=== PATIENT | female | born 1950 | race Caucasian/White ===

== ENCOUNTER 2016-12-30 07:59 | Emergency (ER) | payer OTHER ==
[~2016-12-30] VITALS: Ht 160 cm; Wt 105.8 kg
[~2016-12-30 07:59] MED LIST: ATEN-175 PO; CYCL10TA6 PO; DICL1GEL28 TOP; DICY20TA35 PO; DIPH25CA65 PO; GABA-113 PO; GABA300C19 PO; HYDRTAB8 PO; LOPE-5 PO; NAPR1TAB9 PO; ONDA8TAB62 SL; PRLSR20 PO
[2016-12-30 08:04] VITALS: TEMP 36.7; Ht 160 cm; Wt 105.8 kg
--- NOTE | 2016-12-30 09:27 | DIAGNOSTIC IMAGING REPORT ---
LEFT HUMERUS 2 VIEWS CLINICAL HISTORY: Fall with left arm pain. FINDINGS: AP and lateral views of the left humerus are obtained. No prior studies are available for comparison at the time of dictation. The skeletal structures are osteopenic. There is no radiographic evidence of humeral fracture. The shoulder and elbow joints are grossly maintained. An enthesophyte is present at the triceps insertion on the ulna. The overlying soft tissues are within normal limits. IMPRESSION: Osteopenia with no radiographic evidence of left humeral fracture. Electronically signed by: Eamon Bryan M.D. 12/30/2016 9:26 AM Dictated Date/Time: 12/30/2016 9:24 AM
--- NOTE | 2016-12-30 09:28 | DIAGNOSTIC IMAGING REPORT ---
LEFT SHOULDER MIN 2 VIEWS ROUTINE CLINICAL HISTORY: pain s/p fall trauma COMPARISON: None. DISCUSSION: Moderate degenerative change glenohumeral joint. Subtle Hill-Sachs type deformity lateral aspect humeral head. Osteophyte projecting from the inferior acromion most likely creating a component of the patient. No significant soft tissue calcifications. There is no evidence for soft tissue swelling. IMPRESSION: Degenerative change. No acute bony abnormality. Electronically signed by: Tip Lo M.D. 12/30/2016 9:27 AM Dictated Date/Time: 12/30/2016 9:24 AM
--- NOTE | 2016-12-30 09:53 | EMERGENCY ROOM VISIT NOTE ---
ED Visit Note First contact with patient: 08:15 Chief Complaint: Fell this AM, LEFT Arm Pain History of Present Illness: Patient is a 66-year-old female who presents to the emergency Department by private vehicle for evaluation of her LEFT arm pain. She reports that she fell this morning on ice. She landed on her elbow. She denies striking her head or any loss of consciousness. The patient rates her current discomfort as a 10/10. She did take one, 7.5 mg Vicodin which was previously prescribed for chronic back pain with minimal relief of symptoms. The patient denies any current headaches, dizziness, neck pain, elbow pain, or wrist pain. She does not utilize any blood thinners. She denies any numbness or tingling into the distal care. She reports no previous history of fracture or injury to the affected area. She denies any prefall headaches, dizziness, lightheadedness, chest pain, or shortness of breath. Medications: Reviewed and discussed with the patient. Allergies: Tetanus toxoids. PMH: No pertinent past medical history. SHx: Patient is a 66-year-old female who lives with family. ROS: All pertinent positive and negative review of systems are appropriately documented in the History of Present Illness. Physical Exam: VITAL SIGNS - Vital signs and nursing notes were reviewed. GENERAL - 66-year-old LEFT appearing her stated age and in noticeable discomfort throughout the exam. NECK - FROM of the cervical spine. No spinous process or paraspinal muscle tenderness to palpation. No nuchal rigidity. LUNGS - Chest wall symmetric without accessory muscle use, intercostals retractions, or central cyanosis. Normal vesicular breath sounds CTA B/L. No wheezes, rales, or rhonchi appreciated. CARDIAC - RRR with S1/S2. No murmur, rubs, or gallops appreciated. MUSCULOSKELETAL - tenderness to palpation to the midshaft of the humerus on the LEFT arm. No step-off deformities appreciated. No tenderness to palpation appreciated in the LEFT shoulder or elbow. +4/5 strength appreciated LEFT versus right secondary to patient discomfort. NEUROLOGIC - SENSORY: Spinothalamic tract was found to be intact with ability to discriminate sharp versus dull sensation at the level of the LEFT side of the neck down to the fingertips. No sensory deficits of the dorsal column were appreciated utilizing light touch for evaluation. VASCULAR - Capillary refill was brisk. +3/5 radial pulse palpated. IMAGING: LEFT HUMERUS 2 VIEWS CLINICAL HISTORY: Fall with left arm pain. FINDINGS: AP and lateral views of the left humerus are obtained. No prior studies are available for comparison at the time of dictation. The skeletal structures are osteopenic. There is no radiographic evidence of humeral fracture. The shoulder and elbow joints are grossly maintained. An enthesophyte is present at the triceps insertion on the ulna. The overlying soft tissues are within normal limits. IMPRESSION: Osteopenia with no radiographic evidence of left humeral fracture. LEFT SHOULDER MIN 2 VIEWS ROUTINE CLINICAL HISTORY: pain s/p fall trauma COMPARISON: None. DISCUSSION: Moderate degenerative change glenohumeral joint. Subtle Hill-Sachs type deformity lateral aspect humeral head. Osteophyte projecting from the inferior acromion most likely creating a component of the patient. No significant soft tissue calcifications. There is no evidence for soft tissue swelling. IMPRESSION: Degenerative change. No acute bony abnormality. ED Course: Patient was seen and evaluated by myself. Patient was provided an arm sling for comfort. X-ray was obtained of the affected shoulder and humerus. Imaging results as above. Imaging results reviewed with the patient who acknowledges understanding. The patient was provided an arm sling to be used for comfort for the next few days. She has [id number] medications as well as Vicodin to be used for pain. She'll follow-up with her primary care provider or orthopedic surgeon from today's visit. She will return for any changing/ worsening symptoms. Patient discharged home in good condition. In the evaluation and treatment of this patient, the following differential diagnoses were considered: Shoulder Contusion, Shoulder Fracture, Shoulder Dislocation, Thoracic Outlet Syndrome, Adhesive Capsulitis, Rotator Cuff Tear, Proximal Clavicle Head Fracture, Apical Pneumonia, Pneumothorax, Hemothorax, or TB. Impression: LEFT Humerus Contusion, Mechanical Fall Discharge Instructions: You have been treated in the Emergency Department for your LEFT Humerus Contusion. For pain control, you can use the following kyfo-hed-[id number] medicines (if >12 yo): - Regular strength (325mg/tab) Tylenol (acetaminophen) 2 tabs every 4-6 hours as needed. Do not exceed 12 tablets in a 24 hour period. Avoid taking more than 4 grams (4000 mg) of Tylenol per day. This includes any other sources of acetaminophen you may take on a regular basis. - Regular strength (200 mg/tab) Advil (ibuprofen) 1-2 tabs every 4-6 hours as needed. Do not exceed a dose of 3200 mg per day. If this is a recent injury (<24 hrs), ice can be applied to the area of pain for the first 3 days to help decrease pain and inflammation. Wear the arm sling for comfort for the next several days as needed. Return to the Emergency Department if your current symptoms worsen despite treatment course outlined above, or if you develop any of the following symptoms : intractable pain despite aforementioned treatment course or new onset of numbness or tingling of the arm. Problem List Medical Problems: (1) Acute back pain Status: Resolved (2) Arthritis Status: Chronic (3) Contusion of knee, left Status: Resolved (4) Depressive Disorder Nec Status: Chronic (5) Esophageal Reflux Status: Chronic (6) Fall Status: Resolved (7) HYPERTENSION NOS Status: Chronic (8) Influenza A Status: Resolved (9) Mid back pain Status: Resolved (10) Mid back pain Status: Resolved (11) Peripheral neuropathy Status: Chronic Surgical Problems: (1) Appendectomy Status: Resolved (2) Arthroscopy of knee joint Status: Resolved (3) section Status: Resolved (4) Cholecystectomy Status: Resolved (5) Hysterectomy Status: Resolved Current/Historical Medications Scheduled Atenolol (Tenormin), 100 MG PO BID Dicyclomine Hcl (Bentyl), 20 MG PO BID Diphenhydramine Hcl (Benadryl Allergy), 25 MG PO HS Gabapentin (Neurontin), 600 MG PO AMPM Gabapentin (Neurontin), 600 MG PO DAILY Loperamide Hcl (Imodium A-D), 2 MG PO HS Omeprazole (Prilosec), 20 MG PO Q2D Scheduled PRN Cyclobenzaprine Hcl (Flexeril), 10 MG PO TID PRN for MUS SPASMS Diclofenac Sod (Voltaren 1% Top Gel), 1 APPLN TOP BID PRN Hydrocodone/Acetaminophen 7.5MG/500MG (Lortab 7.5MG/500MG), 1 TAB PO TID PRN Naproxen (Aleve), 220 MG PO Q12 PRN for Pain Ondansetron Odt (Zofran Odt), 8 MG SL Q6H PRN for Nausea Allergies Coded Allergies: Tetanus Toxoids (Verified Allergy, Severe, ARM SWELLING, 12/30/16) Vital Signs Date Time Temp Pulse Resp B/P Pulse Ox O2 Delivery O2 Flow Rate FiO2 12/30/16 09:56 72 16 138/84 97 12/30/16 08:04 36.7 60 18 185/84 95 Room Air Departure Information Impression Primary Impression: Contusion of arm, left Additional Impression: Fall Dispostion Home / Self-Care Condition GOOD Referrals Olegario Voss M.D. (PCP) Patient Instructions [facility] Additional Instructions You have been treated in the Emergency Department for your LEFT Humerus Contusion. For pain control, you can use the following zsbv-gia-frbcpxf medicines (if >12 yo): - Regular strength (325mg/tab) Tylenol (acetaminophen) 2 tabs every 4-6 hours as needed. Do not exceed 12 tablets in a 24 hour period. Avoid taking more than 4 grams (4000 mg) of Tylenol per day. This includes any other sources of acetaminophen you may take on a regular basis. - Regular strength (200 mg/tab) Advil (ibuprofen) 1-2 tabs every 4-6 hours as needed. Do not exceed a dose of 3200 mg per day. If this is a recent injury (<24 hrs), ice can be applied to the area of pain for the first 3 days to help decrease pain and inflammation. Wear the arm sling for comfort for the next several days as needed. Return to the Emergency Department if your current symptoms worsen despite treatment course outlined above, or if you develop any of the following symptoms : intractable pain despite aforementioned treatment course or new onset of numbness or tingling of the arm. Problem Qualifiers Primary Impression: Contusion of arm, left Encounter type: initial encounter Qualified Codes: S40.022A - Contusion of left upper arm, initial encounter Additional Impression: Fall Encounter type: initial encounter Qualified Codes: W19.XXXA - Unspecified fall, initial encounter
[2016-12-30 09:56] VITALS: BP 138/84; PULSE 72; O2SAT 97
[2017-02-15] MEDS ORDERED: HYDR-3983 PO (12:09)
== END 2016-12-30 10:06 | disposition home or self-care (01) ==
LOC: C.EDB 08:00
DX: S40.022A Contusion of left upper arm, initial encounter (principal); W00.9XXA Unspecified fall due to ice and snow, initial encounter; M19.90 Unspecified osteoarthritis, unspecified site; F32.9 Major depressive disorder, single episode, unspecified; K21.9 Gastro-esophageal reflux disease without esophagitis; I10 Essential (primary) hypertension; G62.9 Polyneuropathy, unspecified; Z90.49 Acquired absence of other specified parts of digestive tract; Z90.710 Acquired absence of both cervix and uterus; Z79.899 Other long term (current) drug therapy

== ENCOUNTER → 2017-02-10 | Outpatient (CLI) | payer OTHER ==
[~2017-02-10] MED LIST changes: +HYDR-3983 PO; +KETO10TA PO; +OXYC-57 PO
[2017-02-10 13:45] LABS: BASO % 0.4 %; BASO ABS # 0.03 K/uL (0-0.2); COMPLETE YES; EOS % 1.8 %; HEMATOCRIT 37.5 % (37-47); IG% 0.3 %; LYMPH % 41.1 %; LYMPH ABS # 2.93 K/uL (1.2-3.4); MEAN CELL VOLUME 87.4 fL (80-100); MEAN CORPUSCULAR HEMOGLOBIN 30.3 pg (25-34); MEAN CORPUSCULAR HGB CONC 34.7 g/dl (32-36); MEAN PLATELET VOLUME 9.8 fL (7.4-10.4); MONO % 7.6 %; NEUT % 48.8 %; PLATELET COUNT 208 K/uL (130-400); RED BLOOD COUNT 4.29 M/uL (4.2-5.4); WHITE BLOOD COUNT 7.13 K/uL (4.8-10.8)
--- NOTE | 2017-02-10 13:52 | DIAGNOSTIC IMAGING REPORT ---
CHEST 2 VIEWS ROUTINE CLINICAL HISTORY: PT TO [facility] AFTER preoperative evaluation COMPARISON STUDY: 02/29/2016 FINDINGS: The bones soft tissues and hemidiaphragms are normal. The cardiomediastinal silhouette is normal. The lungs are clear. The pulmonary vasculature is normal. IMPRESSION: Negative chest. Electronically signed by: Tip Lo M.D. 02/10/2017 1:51 PM Dictated Date/Time: 02/10/2017 1:51 PM
[2017-02-10 14:27] LABS: BLOOD UREA NITROGEN 21 mg/dl (7-18); BUN/CREATININE RATIO 24.6 (10-20); CALCIUM 9.4 mg/dl (8.5-10.1); CARBON DIOXIDE 25 mmol/L (21-32); CHLORIDE 105 mmol/L (98-107); CREATININE 0.84 mg/dl (0.60-1.20); GLUCOSE 124 mg/dl (70-99); POTASSIUM 4.2 mmol/L (3.5-5.1); SODIUM 139 mmol/L (136-145)
== END | disposition home or self-care (01) ==
LOC: C.CPL 12:51
PROVIDERS: ATTEND Orthopaedic Surgery
DX: Z01.810 Encounter for preprocedural cardiovascular examination (principal); Z01.812 Encounter for preprocedural laboratory examination; M75.122 Complete rotator cuff tear or rupture of left shoulder, not specified as traumatic

== ENCOUNTER 2017-02-18 11:39 | Day surgery (SDC) | payer OTHER ==
[2017-02-15 10:52] VITALS: BMI 40.0
--- NOTE | 2017-02-16 18:07 | HISTORY & PHYSICAL EXAMINATION ---
DATE OF ADMISSION: 02/18/2017 CHIEF COMPLAINT: Large left rotator cuff tear. HISTORY OF PRESENT ILLNESS: Isabela is a pleasant 67-year-old female who was walking her dog a month ago when she fell directly on to her left outstretched hand. She had immediate left shoulder pain. She was initially treated conservatively without any improvement, then got an MRI which showed a large rotator cuff tear. After discussions in the office, she has elected to proceed with surgical fixation. She understands the risks, benefits, alternatives to the procedure and has elected to proceed. PAST MEDICAL HISTORY: Significant for hypertension, GERD. MEDICATIONS: Include Neurontin 600 mg twice a day and 300 mg once a day, atenolol 100 mg daily, dicyclomine 20 mg twice a day, Vicodin 7.5 mg as needed and Flexeril 10 mg as needed. PAST SURGICAL HISTORY: Significant for an open right rotator cuff repair in [place] 15 years ago. ALLERGIES: TETANUS. FAMILY HISTORY: Noncontributory. SOCIAL HISTORY: The patient is , has 2 children. Denies any tobacco, alcohol or IV drug use. REVIEW OF SYSTEMS: The patient complains of left shoulder pain. All other pertinent review of systems are negative. PHYSICAL EXAMINATION: GENERAL: She is awake, alert and oriented x3. She is in no apparent distress. She is very pleasant. HEENT: Pupils equal, round and reactive to light. Extraocular motions intact. Oral mucosa is pink and moist. HEART: Regular rate per radial pulse. LUNGS: Kiera symmetrically bilaterally with no audible breath sounds. ABDOMEN: Soft, nontender, nondistended. MUSCULOSKELETAL: On physical examination of the left shoulder, she has about 80 degrees of forward elevation and 40 degrees of abduction. She has 3/5 muscle strength to full can testing and 3/5 muscle strength with external rotation. Negative bear hug and belly press test. A lot of pain in the subacromial space. IMAGING: MRI does show a medium to large sized rotator cuff tear of the entire supraspinatus, it appears to be an acute tear. I see no signs of glenohumeral arthritis or any other pathology. IMPRESSION: Large left rotator cuff tear. PLAN: We will proceed with arthroscopic fixation of the left rotator cuff. Postoperatively, she will be placed in an abduction arm sling and discharged to home on oral pain medications.
[~2017-02-18] VITALS: Ht 160 cm; Wt 103.6 kg
[~2017-02-18 11:39] MED LIST changes: +ACETAMINOPHEN 500 MG TAB PO SCH; +CEFAZOLIN 2000 MG/60 ML D5W 60 ML IV SCH; +FAMOTIDINE 20 MG TAB PO SCH; -GABA-113 PO; +GABAPENTIN 300 MG CAP PO SCH; -HYDRTAB8 PO; -KETO10TA PO; +LACTATED RINGER'S 1000ML IV SCH; -OXYC-57 PO; +ROPIVACAINE 0.5% 5 MG/ML 30 ML VIAL ONE
--- NOTE | 2017-02-18 12:02 | History & Physical Bridge Note ---
H&P Re-Evaluation Bridge Note: I have examined the patient, reviewed the History & Physical and in the interval since the performance of the History & Physical I have noted the following changes of clinical significance: No changes noted
[2017-02-18 12:09] VITALS: BP 209/101; PULSE 85; TEMP 36.7; O2SAT 97; Ht 160 cm; Wt 103.6 kg
[2017-02-18] MEDS ORDERED: SCOPOLAMINE 1.5 MG TDSY TD ONE (12:17)
[2017-02-18] MEDS ORDERED: LIDOCAINE HCL 2% 2 ML VIAL (20MG/ML) ONE (12:22)
[2017-02-18] MEDS ORDERED: MIDAZOLAM HCL 1 MG/ML 2ML VIAL ONE (12:22)
[2017-02-18] MEDS ORDERED: PROPOFOL IV EMULSION 10 MG/ML 20 ML VIAL IV ONE (12:22)
[2017-02-18] MEDS ORDERED: FENTANYL CITRATE INJ 50 MCG/1 ML 2 ML VIAL ONE (12:22)
[2017-02-18] MEDS ORDERED: BACITRACIN 50000 UNIT VIAL ONE (12:23)
[2017-02-18 12:26] LABS: PROTHROMBIN TIME (PATIENT) 10.7 SECONDS (9.0-12.0)
[2017-02-18] MEDS ORDERED: BUPIVACAINE/EPINEPHRINE 0.5% MPF 1:200,000 30 ML VIAL ONE (12:33)
[2017-02-18] MEDS ORDERED: DEXAMETHASONE SOD INJ 4 MG/ML VIAL ONE (12:59)
[2017-02-18] MEDS ORDERED: ONDANSETRON INJ 2 MG/ML 2 ML VIAL ONE ×2 (12:59→14:15)
[2017-02-18] MEDS ORDERED: ROCURONIUM BROMIDE 10 MG/ML 5 ML VIAL ONE (12:59)
[2017-02-18] MEDS ORDERED: CEFAZOLIN SOD 1 GM VIAL ONE (13:00)
[2017-02-18] MEDS ORDERED: SODIUM CHLORIDE 0.9% INJ 10 ML VIAL ONE (13:01)
[2017-02-18] MEDS ORDERED: EpHEDrine SULFATE 50MG/5ML SYR ONE (13:33)
[2017-02-18] MEDS ORDERED: PHENYLEPHRINE 100MCG/ML 5ML SYR ONE (13:33)
[2017-02-18] MEDS ORDERED: NEOSTIGMINE METHYLSULFATE 5 MG/5 ML SYR ONE (14:15)
[2017-02-18] MEDS ORDERED: GLYCOPYRROLATE INJ 0.2 MG/ML VIAL ONE (14:15)
[2017-02-18] MEDS ORDERED: ESMOLOL HCL 10 MG/ML 10 ML VIAL ONE (14:24)
[2017-02-18] MEDS ORDERED: METOPROLOL TARTRATE 1 MG/ML VIAL ONE (14:28)
[2017-02-18] MEDS ORDERED: OXYC-57 PO (14:40)
[2017-02-18] MEDS ORDERED: KETO10TA PO (14:40)
[2017-02-18] MEDS ORDERED: SODIUM CHLORIDE 0.9% 1000ML 1,000 ML IV SCH (14:42)
--- NOTE | 2017-02-18 14:42 | [facility] Post Operative Brief Note ---
Immediate Operative Summary Operative Date Feb 18, 2017. Pre-Operative Diagnosis Large left rotator cuff tear Post-Operative Diagnosis Large left rotator cuff tear Procedure(s) Performed Left Shoulder Arthroscopy Medium Rotator Cuff Repair Biceps Tenotomy Surgeon Dr. Trinidad Helper/Driver Surgeon(s) Dami Barnes PA-C Estimated Blood Loss 2 mL Findings as above Specimens None per Surgeon Complication(s) None Disposition Recovery Room / PACU
--- NOTE | 2017-02-18 14:42 | Discharge Instructions ---
Discharge Instructions Date of Service Feb 18, 2017. Admission Reason for Admission: Left Shoulder Full Thickness Rotator Cuff Tear Discharge Discharge Diagnosis / Problem: SAME ABOVE Discharge Goals Goal(s): Decrease discomfort, Improve function Activity Recommendations Activity Limitations: as noted below Lifting Limitations: until after follow-up appointment Exercise/Sports Limitations: until after follow-up appointment Shower/Bathe: tomorrow . Instructions / Follow-Up Instructions / Follow-Up MEDICATIONS: * Resume previous medications unless instructed otherwise by your surgeon. * Always take pain medication on a full stomach or with food to avoid upset stomach. * Do not drink alcohol or drive while taking narcotics. * Ibuprofen or Tylenol may be taken if narcotic not needed. SPECIAL CARE INSTRUCTIONS: __ None _X_ Keep extremity elevated and iced x 48 hours; apply ice 20-30 minutes 8-10 times/day. May remove at night. __ Sling __24 hrs/day __ Remove at night _X_ Shoulder Immobilizer (MAY REMOVE AFTER 48 HOURS ONLY TO SHOWER AND FOR THERAPY) _X_ 24 hrs/day __ Remove at night _X_ Dressing __ Maintain until seen in office, may shower with plastic over site _X_ Remove dressings in 24-48 hours and then may shower _X_ Cover incisions with band-aids after showering __ Do not remove steri-strips Call physician if chills or temperature rises above 102 degrees or pain unrelieved by prescribed pain medications at . . Current Hospital Diet Patient's current hospital diet: Discharge Diet Recommended Diet: Regular Diet Fluid Restriction: None Procedures Procedures Performed: Left Shoulder Arthroscopy Medium Rotator Cuff Repair Biceps Tenotomy Pending Studies Studies pending at discharge: no Work Instructions Return To Work: after follow-up Lifting Limitations: NO LIFTING WITH LEFT ARM Medical Emergencies . Who to Call and When: Medical Emergencies: If at any time you feel your situation is an emergency, please call 911 immediately. . Non-Emergent Contact Non-Emergency issues call your: Primary Care Provider Call Non-Emergent contact if: you have a fever, temperature is above 101.5 . "Provider Documentation" section prepared by Dami Barnes. VTE Core Measure Inpt VTE Proph given/why not?: Simone Abrams
[2017-02-18] MEDS ORDERED: OXYCODONE/ACETAMINOPHEN 5-325 TAB PO PRN ×2 (14:45)
[2017-02-18] MEDS ORDERED: ONDANSETRON INJ 2 MG/ML 2 ML VIAL IV PRN ×2 (14:45→15:15)
--- NOTE | 2017-02-18 14:55 | OPERATIVE REPORT ---
DATE OF OPERATION: 02/18/2017 PREOPERATIVE DIAGNOSIS: Medium sized left rotator cuff tear. POSTOPERATIVE DIAGNOSIS: Same. PROCEDURE: Left shoulder diagnostic arthroscopy with limited debridement, acromioplasty, medium-sized traumatic rotator cuff repair and biceps tenotomy. SURGEON: Dr. Altaf Trinidad. VISUAL DISPLAY ASSOCIATE: Andrew Barnes PA-C, whose assistance was necessary for positioning the arm and helping with instrumentation. ANESTHESIA: General with a left interscalene nerve block. COMPLICATIONS: None. CONDITION: Stable to PACU. INDICATIONS: Isabela is a pleasant 67-year-old female who fell while walking her dog about a month ago. She came to our office. MRI and clinical examination were diagnostic for medium-sized acute rotator cuff tear. After failing conservative treatment, she elected to undergo arthroscopy. On 02/18/2017 she arrived at [facility] for the above procedure. She was seen in the preoperative holding area and the operative extremity was identified and signed. She was given a preoperative antibiotic, taken back to the operating room, laid on the table in supine position and put under general anesthesia. She was then put into the beachchair position. The left shoulder was prepped and draped in sterile fashion. A time-out was done and the patient and operative extremity was properly identified. A scope was introduced in the posterior portal. Diagnostic arthroscopy showed no cartilage damage to the humeral head or the glenoid. The biceps tendon was slightly frayed. A little fraying of the anterior and superior labrum. There was a tear of the entire supraspinatus. The infraspinatus, teres minor and subscapularis were all checked and intact. An anterior portal was made. A shaver was used to do a limited debridement of the intraarticular structures and the biceps tendon was arthroscopically tenotomized. The scope was then put into the subacromial space. A lateral portal was made. A shaver was used to do a complete subacromial and subdeltoid bursectomy. An ablator was used to tease the coracoacromial ligament off the undersurface of the acromion and a 5-0 jessica was used to complete an acromioplasty of a large Bigliani type 3 acromion. A shaver was used to remove any excess debris and attention was turned to the rotator cuff. There was a medium sized almost U-shaped tear with a split in the middle. The greater tuberosity was prepared with a ring curette and a microfracture. An additional anterolateral portal was made and Tiffanie cannulas were placed in each of the lateral portals. The rotator cuff was then fixed with an Arthrex SpeedBridge configuration using 4.75 mm BioComposite SwiveLock suture anchors. This gave nice fixation. Multiple pictures were taken. The scope was put back into the glenohumeral joint and the articular margin of the rotator cuff had been restored. Pictures were taken. Arthroscopic instruments were removed from the shoulder. Portal sites were closed with 3-0 nylon. She was then placed in a soft dressing and a regular arm sling. She was then extubated, transferred to a litter and taken to the postanesthesia care unit in stable condition. She tolerated the procedure well. I attest to the content of the Intraoperative Record and any orders documented therein. Any exceptio ns are noted below.
--- NOTE | 2017-02-18 15:02 | Anesthesiology Progress Note ---
Anesthesia Post Op Note Date & Time Feb 18, 2017 at 15:02 Vital Signs Pain Intensity: 0 Vital Signs Past 12 Hours Date Time Temp Pulse Resp B/P Pulse Ox O2 Delivery O2 Flow Rate FiO2 02/18/17 14:55 92 16 144/88 98 Nasal Cannula 2 02/18/17 14:45 95 16 144/69 97 Nasal Cannula 2 02/18/17 14:39 36.4 100 16 146/71 96 Nasal Cannula 2 02/18/17 12:09 36.7 85 18 209/101 97 Room Air Notes Mental Status: alert / awake / arousable, participated in evaluation Pt Amnestic to Procedure: Yes Nausea / Vomiting: adequately controlled Pain: adequately controlled Airway Patency, RR, SpO2: stable & adequate BP & HR: stable & adequate Hydration State: stable & adequate Anesthetic Complications: no major complications apparent
[2017-02-18] MEDS ORDERED: ATROPINE SULFATE 0.1 MG/ML 5ML SYR IV PRN (15:15)
[2017-02-18] MEDS ORDERED: EpHEDrine SULFATE INJ 50 MG/ML AMP IV PRN (15:15)
[2017-02-18] MEDS ORDERED: FENTANYL CITRATE INJ 50 MCG/1 ML 2 ML VIAL IV PRN (15:15)
[2017-02-18 15:29] VITALS: BP 154/69; PULSE 91; TEMP 36.5; O2SAT 95
[2017-02-18 16:00] VITALS: BP 145/76; PULSE 93; O2SAT 94
[2017-02-18 16:30] VITALS: BP 166/77; PULSE 97; TEMP 36.5; O2SAT 96
== END 2017-02-18 17:15 | disposition home or self-care (01) ==
LOC: C.ACU 11:39
PROVIDERS: ATTEND Orthopaedic Surgery
DX: S43.422A Sprain of left rotator cuff capsule, initial encounter (principal); W01.0XXA Fall on same level from slipping, tripping and stumbling without subsequent striking against object, initial encounter; Y93.01 Activity, walking, marching and hiking; Y92.89 Other specified places as the place of occurrence of the external cause; Y99.8 Other external cause status; Z88.7 Allergy status to serum and vaccine

== ENCOUNTER → 2017-11-08 | Day surgery (SDC) | payer OTHER ==
[2017-10-31 13:09] VITALS: Ht 160 cm; Wt 102.7 kg
[~2017-11-08] VITALS: Ht 160 cm; Wt 102.7 kg
[~2017-11-08] MED LIST changes: -ACETAMINOPHEN 500 MG TAB PO SCH; +ATROPINE SULFATE 0.1 MG/ML 5ML SYR IV PRN; +BETAMETH SOD PHOS/ACETATE IA 6 MG/ML ONE; +BUPIVACAINE 0.5 % 5 MG/1 ML PF 10ML VIAL ONE; -CEFAZOLIN 2000 MG/60 ML D5W 60 ML IV SCH; +CEFAZOLIN 2000MG IV PUSH 10 ML IV SCH; -CYCL10TA6 PO; +DICL1GEL12 TOP; -DICL1GEL28 TOP; +EpHEDrine SULFATE INJ 50 MG/ML AMP IV PRN; -FAMOTIDINE 20 MG TAB PO SCH; +FENTANYL CITRATE INJ 50 MCG/1 ML 2 ML VIAL IV PRN; +FENTANYL CITRATE INJ 50 MCG/1 ML 2 ML VIAL ONE; +GABA-113 PO; -GABA300C19 PO; -GABAPENTIN 300 MG CAP PO SCH; -HYDR-3983 PO; +LACTATED RINGER'S 1000ML 1,000 ML IV SCH; -LACTATED RINGER'S 1000ML IV SCH; +LIDOCAINE HCL 1% 20 ML VIAL ONE; +LIDOCAINE HCL 2% 2 ML VIAL (20MG/ML) ONE; +MIDAZOLAM HCL 1 MG/ML 2ML VIAL ONE; -ONDA8TAB62 SL; +ONDANSETRON INJ 2 MG/ML 2 ML VIAL IV PRN; +OXYCODONE/ACETAMINOPHEN 5-325 TAB PO PRN; +PROMETHAZINE HCL INJ 6.25 MG in SODIUM CHLORIDE 0.9% 50ML 50 ML IV PRN; +PROPOFOL IV EMULSION 10 MG/ML 20 ML VIAL IV ONE; -ROPIVACAINE 0.5% 5 MG/ML 30 ML VIAL ONE; +SODIUM CHLORIDE 0.9% 1000ML 1,000 ML IV SCH; +TRAM-10 PO
--- NOTE | 2017-11-08 07:40 | [facility] Post Operative Brief Note ---
Immediate Operative Summary Operative Date Nov 08, 2017. Pre-Operative Diagnosis Right and Left Long Finger Trigger Fingers Post-Operative Diagnosis Same Procedure(s) Performed Right Long Trigger Finger Release, Left Long Finger Injection With 1CC Celestone, .25CC Mark Surgeon Dr. Portillo Laborer Construction Or Leak Gang Surgeon(s) Angel Sousa PA-C Estimated Blood Loss 0ml Findings ABOVE Specimens None Anesthesia LOCAL IV SEDATION Complication(s) None Disposition
[2017-11-08 07:44] VITALS: TEMP 36.5
--- NOTE | 2017-11-08 07:44 | Discharge Instructions-SurgCtr ---
Discharge Instructions Date of Service Nov 08, 2017. Visit Reason for Visit: Right And Left Long Trigger Fingers Discharge Discharge Diagnosis / Problem: SAME ABOVE Discharge Goals Goal(s): Decrease discomfort, Improve function Medications Stopped Medications Name(s): freya. last dose tuesday Activity Recommendations Activity Limitations: as noted below Lifting Limitations: gradually increase as tolerated Exercise/Sports Limitations: until after follow-up appointment Shower/Bathe: tomorrow Anesthesia . Post Anesthesia Instructions: If you have had General Anesthesia or IV Sedation: * Do not drive today. * Resume driving when surgeon permits. * Do not make important decisions or sign legal documents today. * Call surgeon for: 1. Temperature elevations greater than 101 degrees F. 2. Uncontrollable pain. 3. Excessive bleeding. 4. Persistent nausea and vomiting. 5. Medication intolerance (nausea, vomiting or rash). * For nausea and vomiting use only clear liquids such as: tea, soda, bouillon until nausea subsides, then gradually increase diet as tolerated. * If you have any concerns or questions, call your surgeon's office. If physician is unavailable and it is an emergency, call 911 or go to the nearest emergency room. . Instructions / Follow-Up Instructions / Follow-Up MEDICATIONS: * Resume previous medications unless instructed otherwise by your surgeon. * Always take pain medication on a full stomach or with food to avoid upset stomach. * Do not drink alcohol or drive while taking narcotics. * Ibuprofen or Tylenol may be taken if narcotic not needed. SPECIAL CARE INSTRUCTIONS: __ None _X_ Keep extremity elevated and iced x 48 hours; apply ice 20-30 minutes 8-10 times/day. May remove at night. __ Sling __24 hrs/day __ Remove at night __ Shoulder Immobilizer __ 24 hrs/day __ Remove at night _X_ Dressing __ Maintain until seen in office, may shower with plastic over site _X_ Remove dressings in 24-48 hours and then may shower _X_ Cover incisions with band-aids after showering __ Do not remove steri-strips Call physician if chills or temperature rises above 102 degrees or pain unrelieved by prescribed pain medications at . . Diet Recommendations Home Diet: resume previous diet Procedures Procedures Performed: Right Long Trigger Finger Release, Left Long Finger Injection With 1CC Celestone, .25CC Marcaine Pending Studies Studies pending at discharge: no Medical Emergencies . Who to Call and When: Medical Emergencies: If at any time you feel your situation is an emergency, please call 911 immediately. . Non-Emergent Contact Non-Emergency issues call your: Primary Care Provider . . "Provider Documentation" section prepared by Altaf Sousa. .
[2017-11-08 08:17] VITALS: BP 157/98; PULSE 62; O2SAT 97
--- NOTE | 2017-11-08 08:26 | Anesthesia Progress Nt - [facility] ---
Anesthesia Post Op Note Date & Time Nov 08, 2017 at 08:26 Vital Signs Pain Intensity: 0 Vital Signs Past 12 Hours Date Time Temp Pulse Resp B/P (MAP) Pulse Ox O2 Delivery O2 Flow Rate FiO2 11/08/17 08:17 62 20 157/98 (117) 97 Room Air 11/08/17 07:44 36.5 72 16 159/78 (105) 95 Room Air 11/08/17 06:36 36.3 64 16 184/87 (119) 95 Room Air Notes Mental Status: alert / awake / arousable, participated in evaluation Pt Amnestic to Procedure: Yes Nausea / Vomiting: adequately controlled Pain: adequately controlled Airway Patency, RR, SpO2: stable & adequate BP & HR: stable & adequate Hydration State: stable & adequate Anesthetic Complications: no major complications apparent
--- NOTE | 2017-11-08 12:17 | OPERATIVE REPORT ---
DATE OF OPERATION: 11/08/2017 PREOPERATIVE DIAGNOSES: 1. Right long trigger finger. 2. Beginning left long trigger finger. POSTOPERATIVE DIAGNOSES: Same. PROCEDURE: 1. Release of A1 dilma, right long finger. 2. Cortisone injection to left long finger. SURGEON: Marvin Portillo MD. INTERNATIONAL TAX MANAGER: MARIE Chinchilla. ANESTHESIOLOGIST: Altaf Alan MD. ANESTHESIA: Local with IV sedation. DRAINS: None. COMPLICATIONS: None. CONDITION: The patient tolerated the procedure well and returned to the recovery room in apparent satisfactory condition. INDICATIONS FOR SURGERY: Isabela is a 67-year-old female who has had a painful right long trigger finger and beginning left long trigger finger, who elected to go ahead and proceed with surgery in the right hand and then an injection to the left hand. The procedure, expected outcome, and side effects were all explained in detail. DESCRIPTION OF PROCEDURE: The patient was taken to the OR, at which time she was placed supine on the operating table. She was given IV sedation. The right hand was prepped in the usual sterile fashion for surgery. In the left hand, prior to prepping the right hand, we went ahead and when she was sedated, cleaned out with alcohol swabs and did an injection of 1 mL of Celestone and 0.5 mL of Marcaine into the A1 dilma area of the left long finger. Band-Aid was placed in this area. The right hand then was prepped and draped in the usual sterile fashion for surgery. Once it was prepped out, we went ahead and exsanguinated and put forearm tourniquet up to 250 mmHg. We made a transverse incision over the A1 dilma, dissected down with loupe magnification and we divided the A1 dilma without incident. She had a little cyst present with it also, which was excised. The wound then was irrigated. The skin was closed with interrupted 4-0 nylon sutures. Marcaine without epinephrine was placed in skin edges, placed sterile dressing of Xeroform, 4 x 4 gauze and a Coban and returned to recovery room in apparent satisfactory condition. I attest to the content of the Intraoperative Record and any orders documented therein. Any exception s are noted below.
== END | disposition home or self-care (01) ==
LOC: X.SURG 06:27
PROVIDERS: ATTEND Orthopaedic Surgery
DX: M65.331 Trigger finger, right middle finger (principal); M65.332 Trigger finger, left middle finger; I10 Essential (primary) hypertension; G47.33 Obstructive sleep apnea (adult) (pediatric); Z88.7 Allergy status to serum and vaccine; Z68.41 Body mass index [BMI] 40.0-44.9, adult; M19.90 Unspecified osteoarthritis, unspecified site; E66.9 Obesity, unspecified; Z87.891 Personal history of nicotine dependence; Z98.890 Other specified postprocedural states

== ENCOUNTER → 2018-01-13 | Outpatient (CLI) | payer OTHER ==
[~2018-01-13] MED LIST changes: -ATROPINE SULFATE 0.1 MG/ML 5ML SYR IV PRN; -BETAMETH SOD PHOS/ACETATE IA 6 MG/ML ONE; -BUPIVACAINE 0.5 % 5 MG/1 ML PF 10ML VIAL ONE; -CEFAZOLIN 2000MG IV PUSH 10 ML IV SCH; -EpHEDrine SULFATE INJ 50 MG/ML AMP IV PRN; -FENTANYL CITRATE INJ 50 MCG/1 ML 2 ML VIAL IV PRN; -FENTANYL CITRATE INJ 50 MCG/1 ML 2 ML VIAL ONE; -LACTATED RINGER'S 1000ML 1,000 ML IV SCH; -LIDOCAINE HCL 1% 20 ML VIAL ONE; -LIDOCAINE HCL 2% 2 ML VIAL (20MG/ML) ONE; -MIDAZOLAM HCL 1 MG/ML 2ML VIAL ONE; -ONDANSETRON INJ 2 MG/ML 2 ML VIAL IV PRN; -OXYCODONE/ACETAMINOPHEN 5-325 TAB PO PRN; -PROMETHAZINE HCL INJ 6.25 MG in SODIUM CHLORIDE 0.9% 50ML 50 ML IV PRN; -PROPOFOL IV EMULSION 10 MG/ML 20 ML VIAL IV ONE; -SODIUM CHLORIDE 0.9% 1000ML 1,000 ML IV SCH
[2018-01-13 17:11] LABS: HEMATOCRIT 38.3 % (37-47); HEMOGLOBIN 12.6 g/dL (12.0-16.0); MEAN CELL VOLUME 89.1 fL (80-100); MEAN CORPUSCULAR HEMOGLOBIN 29.3 pg (25-34); MEAN CORPUSCULAR HGB CONC 32.9 g/dl (32-36); MEAN PLATELET VOLUME 10.1 fL (7.4-10.4); PLATELET COUNT 243 K/uL (130-400); RED CELL DISTRIBUTION WIDTH CV 13.4 % (11.5-14.5); RED CELL DISTRIBUTION WIDTH SD 43.2 fL (36.4-46.3); WHITE BLOOD COUNT 7.95 K/uL (4.8-10.8)
[2018-01-13 17:30] LABS: ALBUMIN 3.8 gm/dl (3.4-5.0); ALT/SGPT 22 U/L (12-78); BLOOD UREA NITROGEN 19 mg/dl (7-18); CALCIUM 9.1 mg/dl (8.5-10.1); CARBON DIOXIDE 28 mmol/L (21-32); CHOLESTEROL 175 mg/dl (0-200); CREATININE 0.88 mg/dl (0.60-1.20); GLUCOSE 105 mg/dl (70-99); POTASSIUM 4.7 mmol/L (3.5-5.1); SODIUM 140 mmol/L (136-145)
[2018-01-13 17:40] LABS: ALKALINE PHOSPHATASE 102 U/L (45-117); AST/SGOT 16 U/L (15-37); LDL CHOLESTEROL CALCULATED 67 mg/dl
== END | disposition home or self-care (01) ==
LOC: C.LABBFT 12:12
PROVIDERS: ATTEND Internal Medicine
DX: I10 Essential (primary) hypertension (principal)

== ENCOUNTER → 2018-07-20 | Outpatient (CLI) | payer OTHER ==
[~2018-07-20] MED LIST changes: -TRAM-10 PO
[2018-07-20 17:54] LABS: BLOOD UREA NITROGEN 31 mg/dl (7-18); CALCIUM 9.4 mg/dl (8.5-10.1); CARBON DIOXIDE 27 mmol/L (21-32); CREATININE 0.99 mg/dl (0.60-1.20); GLUCOSE 130 mg/dl (70-99); POTASSIUM 3.9 mmol/L (3.5-5.1); SODIUM 139 mmol/L (136-145)
[2018-07-20 18:39] LABS: HEP C IGG 13 YRS+OLDER_RFLX NEG (NEG)
== END | disposition home or self-care (01) ==
LOC: C.LABBFT 14:16
PROVIDERS: ATTEND Internal Medicine
DX: I10 Essential (primary) hypertension (principal); Z20.5 Contact with and (suspected) exposure to viral hepatitis

== ENCOUNTER 2019-11-09 20:24 | Observation (INO) ==
[2019-11-09] MEDS ORDERED: SODIUM CHLORIDE 0.9% 500 ML IV ONE (20:30)
[2019-11-09 20:43] LABS: Basophils # (auto) 0.01 K/uL (0-0.2); Basophils % (auto) 0.1 %; Eosinophils # (auto) 0.19 K/uL (0-0.5); Eosinophils % (auto) 2.7 %; Hematocrit (blood only) 35.8 % (37-47); Hemoglobin 11.8 g/dL (12.0-16.0); Immature Granulocytes # (auto) 0.01 K/uL (0.00-0.02); Immature Granulocytes % (auto) 0.1 %; Lymphocytes # (auto) 2.62 K/uL (1.2-3.4); Lymphocytes % (auto) 37.3 %; Mean Corpuscular Hemoglobin 29.9 pg (25-34); Mean Corpuscular Volume 90.9 fL (80-100); Mean Platelet Volume 9.6 fL (7.4-10.4); Monocytes # (auto) 0.65 K/uL (0.11-0.59); Monocytes % (auto) 9.2 %; Neutrophils # (auto) 3.55 K/uL (1.4-6.5); Neutrophils % (auto) 50.6 %; Platelet Count 178 K/uL (130-400); RDW Coefficient of Variation 13.1 % (11.5-14.5); RDW Standard Deviation 43.6 fL (36.4-46.3); Red Blood Count 3.94 M/uL (4.2-5.4); White Blood Count 7.03 K/uL (4.8-10.8)
[2019-11-09 21:00] LABS: Alanine Aminotransferase 29 U/L (12-78); Albumin Level 3.7 gm/dl (3.4-5.0); Aspartate Aminotransferase 19 U/L (15-37); BUN Creatinine Ratio 21.9 (10-20); Blood Urea Nitrogen 30 mg/dl (7-18); Calcium 8.7 mg/dl (8.5-10.1); Carbon Dioxide 29 mmol/L (21-32); Chloride 106 mmol/L (98-107); Creatinine Clr Calc Pharmacy 45.8 ml/min; Est GFR (African American) 45.3; Est GFR (Non-African American) 39.1; Glucose 159 mg/dl (70-99); Lipase 105 U/L (73-393); Magnesium 1.9 mg/dl (1.8-2.4); Sodium 139 mmol/L (136-145)
[2019-11-09 21:06] LABS: Albumin Globulin Ratio 1.1 (0.9-2); Alkaline Phosphatase 104 U/L (45-117); Bilirubin,Total 0.3 mg/dl (0.2-1); Globulin 3.5 gm/dl (2.5-4.0); Phosphorus 4.1 mg/dl (2.5-4.9); Total Protein 7.2 gm/dl (6.4-8.2); Troponin I < 0.015 ng/ml (0-0.045)
--- NOTE | 2019-11-09 21:23 | XRay Report ---
XR chest 1V portable CLINICAL HISTORY: 69 years-old Female presenting with Chest Pain. TECHNIQUE: Portable upright AP view of the chest was obtained. COMPARISON: None. FINDINGS: Cardiac silhouette mildly enlarged. Pulmonary vasculature is not significantly engorged. Mildly low l vito volumes. No focal opacity. No large effusion or pneumothorax. Degenerative changes of the thoraci c spine. Upper abdomen normal. IMPRESSION: 1. No acute cardiopulmonary disease. Electronically signed by: Marvin Urbano M.D. 11/09/2019 9:22 PM
[2019-11-09] MEDS ORDERED: OPTIRAY 320 125ml IV PRN (21:32)
--- NOTE | 2019-11-09 21:48 | CT Scan Report ---
CT angio chest PE protocol CLINICAL HISTORY: 69 years-old Female presenting with chest pain, clinical concern for pulmonary embo va. TECHNIQUE: Multidetector CT angiography of the chest was performed after administration of intravenou s contrast. 3-D volumetric and/or maximum intensity projection (MIP) images were subsequently reconst ructed for review. IV contrast: 79 mL of Optiray 320. One or more dose lowering techniques were used consistent with the principles of ALARA (as low as reasonably achievable), including automatic exposu re control, mA or kV adjustment to individual patient size, and/or use of iterative reconstruction. COMPARISON: 11/09/2019. CT DOSE (mGy.cm): The estimated cumulative dose is 788.09 mGy.cm. FINDINGS: Erp Consultant topogram: Cholecystectomy clips. Pulmonary vasculature: The study is suboptimal for the assessment of the pulmonary vascular tree secondary to respiratory mo tion artifact. No filling defect within the pulmonary arteries to suggest embolus. Main pulmonary art jimmy is not enlarged. No flattening of the interventricular septum. No intracardiac filling defect. No reflux of contrast into the hepatic veins. Remaining chest: Soft tissues: Normal thyroid and thoracic inlet. No axillary, supraclavicular, mediastinal, or hilar lymphadenopathy. Normal aorta. Mild multichamber enlargement of the heart. Coronary artery calcificat ion. No pericardial or pleural effusion. Cholecystectomy clips. Lungs and airways: No pneumothorax. Central airways patent. Pulmonary arteries are not significantly enlarged relative to adjacent bronchi. No interlobular septal thickening. Mosaic attenuation extensiv ryan throughout the lungs. 5 mm subpleural lateral basal right lower lobe nodule (series 4 image 118). Musculoskeletal: Degenerative changes of the spine. IMPRESSION: 1. No evidence of pulmonary embolus. 2. Mild cardiomegaly. No significant evidence of volume overload or congestive change. 3. Mosaic attenuation suggests small airways disease. Given the mild diffuse bronchial wall thickeni ng, findings suggest reactive airways disease or viral bronchiolitis. 4. 5 mm right lower lobe solid nodule. Follow-up per Fleischner Society 2017 recommendations below. Summary of Fleischner Society 2017 Recommendations (H Faviola et al. Guidelines for management of i ncidental pulmonary nodules detected on CT images: From the Fleischner Society 2017. Radiology 2017; 284: 228-243.) SOLID NODULES Single nodule; size < 6 mm * Low risk patients: No routine follow-up * High risk patients: Optional CT at 12 months Single nodule; size 6-8 mm * Low risk patients: CT at 6-12 months, then consider CT at 18-24 months * High risk patients: CT at 6-12 months, then at 18-24 months Single nodule; size > 8 mm * Either low or high risk patients: Considered CT at 3 months, PET/CT, or tissue sampling Multiple nodules; size < 6 mm * Low risk patients: No routine follow up * High risk patients: Optional CT at 12 months Multiple nodules; size 6-8 mm * Low risk patients: CT at 3-6 months, then consider CT at 18-24 months * High risk patients: CT at 3-6 months, then at 18-24 months Multiple nodules; size > 8 mm * Low risk patients: CT at 3-6 months, then consider at 18-24 months * High risk patients: CT at 3-6 months, then at 18-24 months SUBSOLID NODULES Single ground-glass nodule * Nodule size < 6 mm: No routine follow-up * Nodule size > or = 6 mm: CT at 6-12 months to confirm persistence, then CT every 2 years until 5 y ears Single part-solid nodule * Nodule size < 6 mm: No routine follow-up * Nodules size > or = 6 mm: CT at 3-6 months to confirm persistence. If unchanged and solid componen t remains < 6 mm, annual CT should be performed for 5 years Multiple nodules * Nodule size < 6 mm: CT at 3-6 months. If stable, consider CT at 2 and 4 years. * Nodules size > or = 6 mm: CT at 3-6 months. Subsequent management based on the most suspicious nod ule(s) NOTE: 1) These guidelines apply to incidental nodules. These guidelines do NOT apply to patients younger th an 35 years, immunocompromised patients, or patients with cancer. 2) Risk categories: * Low risk patients: Minimal or absent history of smoking and/or other known risk factors * High risk patients: History of smoking, exposure to other carcinogens, emphysema, fibrosis, upper lobe location, family history of lung cancer, etc. 3) If a nodule up to 8 mm is partly solid or is ground glass, further follow-up is required after 24 months to exclude possible slow growing adenocarcinoma. Electronically signed by: Marvin Urbano M.D. 11/09/2019 9:47 PM
--- NOTE | 2019-11-09 22:55 | History & Physical Report ---
Date of Service November 09, 2019 Assessment & Plan (1) Substernal chest pain: Substernal chest pain/hypertensive urgency/hypertension- The patient will be admitted to telemetry for serial cardiac enzymes, serial EKG's, cardiac rhythm monitoring and a 2-D echocardiogram with Dopplers. Continue atenolol 100 mg p.o. every evening, with dose now. Add Nitropaste 1 inch to anterior chest wall every 6 hours, with first dose now. If blood pressure elevation persists, will add amlodipine or hydralazine. Present on Admission?: Yes (2) Hypertensive urgency: See above Present on Admission?: Yes (3) Hypertension: See above Present on Admission?: Yes (4) Peripheral neuropathy: Continue gabapentin 1200 mg p.o. 3 times daily, and hydrocodone/acetaminophen 7.5/325 p.o. twice daily PRN. Hold naproxen. Present on Admission?: Yes History of Present Illness Chief Complaint: Patient presents to the emergency department with chest pain that began around 11 AM this morning, gradually worsened as the day progressed. Primary Care Provider: Olegario Voss MD The patient is a 69-year-old female with a past medical history including hypertension, peripheral neuropathy, GERD, diarrhea who presents the emergency department with acute onset of substernal chest discomfort that began early in the day and worsened in intensity as the day progressed. She did receive 3 sublingual nitroglycerin by EMS prehospitalization, which she reports did resolve her chest pain. She reports having a stress test about 20 years ago, but no cardiac work-up since. Allergies Allergy/AdvReac Type Severity Reaction Status Date / Time pneumococcal vaccine Allergy Severe RED ARM, Verified 11/09/19 22:04 HIVES, >TEMP tetanus toxoid, adsorbed Allergy Severe ARM Verified 11/09/19 22:03 SWELLING belladonna alkaloids Allergy Intermediate Dizziness Unverified 11/09/19 22:03 Home Medications Home Medications Medication Instructions Recorded Confirmed Type diclofenac sodium [Voltaren] 2 g TOPICAL UD 10/26/18 11/09/19 History diphenhydramine HCl [Benadryl] 25 mg PO HS 10/26/18 11/09/19 History loperamide 2 mg PO HS 10/26/18 11/09/19 History naproxen sodium [Aleve] 220 mg PO BID PRN 10/26/18 11/09/19 History omeprazole 20 mg PO HS 10/26/18 11/09/19 History dicyclomine 20 mg tablet 20 mg PO BID #180 tab 07/02/19 11/09/19 Rx hydrocodone 7.5 mg-acetaminophen 1 tab PO BID PRN #30 tab 08/01/19 11/09/19 Rx 325 mg tablet gabapentin 600 mg tablet 1,200 mg PO TID #540 tab 08/07/19 11/09/19 Rx atenolol 100 mg tablet 100 mg PO DAILY #30 tab 09/05/19 11/09/19 Rx Past Med/Surg History Medical History Acid reflux Mid back pain (Resolved) Surgical History No pertinent past surgical history Family History Mother Myocardial infarction Father Myocardial infarction Social History Preferred Language: Tamaz[place] Communication Ability: Effective Beliefs That Will Affect Care: None Current Living Situation: Parent Other Information That Helps Us Care for You: No Feels Safe at Home: Yes Safety Concerns: Feels Safe At This Time Smoking Status: Former smoker Hx Alcohol Use: No Hx Substance Use: No Review of Systems Review of Systems: The patient denies palpitations, cough, lower extremity swelling, sore throat, fevers, chills, sweats, weight change, fatigue, nausea, vomiting, constipation, abdominal pain, pelvic pain, blood in urine or stool, dysuria, urinary frequency or urgency, lightheadedness, dizziness, headache, memory loss, loss of consciousness, rash, abnormal bruising or bleeding, imbalance, focal or generalized weakness, numbness or tingling in arms or legs, generalized arthralgias or myalgias, back or neck pain, or night sweats. The review of systems is otherwise negative other than for that already noted above, and at least 10 systems have been reviewed. Physical Exam Physical Exam: The patient is awake, alert and oriented 3, well developed and well nourished, normocephalic and atraumatic, lying in bed and in no acute distress. HEENT--PERRL, EOMI, mucous membranes and oropharynx dry. Neck--supple. No JVD. No bruits. Thyroid normal, trachea midline, no adenopathy. Heart--normal S1 and S2. No murmurs, rubs or gallops. Lungs--clear bilaterally, no respiratory distress, no accessory muscle use. Abdomen--normal bowel sounds and soft. Nontender. Nondistended, no hernias or masses, no organomegaly. Extremities--no cyanosis or clubbing. No edema. There are good distal pulses b/l. Dermatologic--normal skin turgor, normal color, no abnormal lymph nodes, no rash. Neurologic--cranial nerves II through XII grossly intact. Rheumatologic--normal range of motion. Psychiatric--normal affect. Results & Data Vital Signs (Past 12 Hours) Vital Signs Temp Pulse Pulse Resp BP BP Pulse Ox 11/09/19 21:49 69 22 200/81 H 95 11/09/19 21:07 67 22 207/93 H 95 11/09/19 20:40 95 11/09/19 20:39 63 20 96 11/09/19 20:30 98.1 F 66 20 202/96 H 96 Laboratory Results Laboratory Results WBC 7.03 K/uL (4.8-10.8) 11/09/19 20:30 RBC 3.94 M/uL (4.2-5.4) L 11/09/19 20:30 Hgb 11.8 g/dL (12.0-16.0) L 11/09/19 20:30 Hct 35.8 % (37-47) L 11/09/19 20:30 MCV 90.9 fL (80-100) 11/09/19 20:30 MCH 29.9 pg (25-34) 11/09/19 20:30 MCHC 33.0 g/dL (32-36) 11/09/19 20:30 RDW Std Deviation 43.6 fL (36.4-46.3) 11/09/19 20:30 RDW Coeff of Jonathon 13.1 % (11.5-14.5) 11/09/19 20:30 Plt Count 178 K/uL (130-400) 11/09/19 20:30 MPV 9.6 fL (7.4-10.4) 11/09/19 20:30 Immature Gran % (Auto) 0.1 % 11/09/19 20:30 Neut % (Auto) 50.6 % 11/09/19 20:30 Lymph % (Auto) 37.3 % 11/09/19 20:30 [place] % (Auto) 9.2 % 11/09/19 20:30 Eos % (Auto) 2.7 % 11/09/19 20:30 Baso % (Auto) 0.1 % 11/09/19 20:30 Immature Gran # (Auto) 0.01 K/uL (0.00-0.02) 11/09/19 20:30 Neut # (Auto) 3.55 K/uL (1.4-6.5) 11/09/19 20:30 Lymph # (Auto) 2.62 K/uL (1.2-3.4) 11/09/19 20:30 [place] # (Auto) 0.65 K/uL (0.11-0.59) H 11/09/19 20:30 Eos # (Auto) 0.19 K/uL (0-0.5) 11/09/19 20:30 Baso # (Auto) 0.01 K/uL (0-0.2) 11/09/19 20:30 Sodium 139 mmol/L (136-145) 11/09/19 20:30 Potassium 4.0 mmol/L (3.5-5.1) 11/09/19 20:30 Chloride 106 mmol/L (98-107) 11/09/19 20:30 Carbon Dioxide 29 mmol/L (21-32) 11/09/19 20:30 Anion Gap 4.0 (3-11) 11/09/19 20:30 BUN 30 mg/dl (7-18) H 11/09/19 20:30 Creatinine 1.39 mg/dl (0.6-1.2) H 11/09/19 20:30 Est Cr Clr Drug Dosing 45.8 ml/min 11/09/19 20:30 Est GFR ( Amer) 45.3 11/09/19 20:30 Est GFR (Non-Af Amer) 39.1 11/09/19 20:30 BUN/Creatinine Ratio 21.9 (10-20) H 11/09/19 20:30 Glucose 159 mg/dl (70-99) H 11/09/19 20:30 Calcium 8.7 mg/dl (8.5-10.1) 11/09/19 20:30 Phosphorus 4.1 mg/dl (2.5-4.9) 11/09/19 20:30 Magnesium 1.9 mg/dl (1.8-2.4) 11/09/19 20:30 Total Bilirubin 0.3 mg/dl (0.2-1) 11/09/19 20:30 AST 19 U/L (15-37) 11/09/19 20:30 ALT 29 U/L (12-78) 11/09/19 20:30 Alkaline Phosphatase 104 U/L (45-117) 11/09/19 20:30 Troponin I < 0.015 ng/ml (0-0.045) 11/10/19 00:39 Total Protein 7.2 gm/dl (6.4-8.2) 11/09/19 20:30 Albumin 3.7 gm/dl (3.4-5.0) 11/09/19 20:30 Globulin 3.5 gm/dl (2.5-4.0) 11/09/19 20:30 Albumin/Globulin Ratio 1.1 (0.9-2) 11/09/19 20:30 Lipase 105 U/L (73-393) 11/09/19 20:30 Diagnostic [place] [phone] XRay Report Patient: MILA COURTNEY Date: 11/09/19 MR#: [id number]: 113 ASA WU Acct ID:[id number]: Date: [address] [place] [address] Zip: [place] [address] Age: 69Location: ED Sex: F Room/Bed: Att Phy:Diagnosis: CHEST PAIN Opal Phy: Olegario Voss III, MDService Date: 11/09/19 Fam Phy:Interpreting Phy: Marvin Urbano MD Admit Phy: Ordering Phy: Nick Parra M.D. cc: ~ XR chest 1V portable CLINICAL HISTORY: 69 years-old Female presenting with Chest Pain. TECHNIQUE: Portable upright AP view of the chest was obtained. COMPARISON: None. FINDINGS: Cardiac silhouette mildly enlarged. Pulmonary vasculature is not significantly engorged. Mildly low lung volumes. No focal opacity. No large effusion or pneumothorax. Degenerative changes of the thoracic spine. Upper abdomen normal. IMPRESSION: 1. No acute cardiopulmonary disease. Electronically signed by: Marvin Urbano M.D. 11/09/2019 9:22 PM Dictated: 11/09/192120 Transcribed: 11/09/192120 [place], [place] [phone] CT Scan Report Patient: MILA COURTNEY Date: 11/09/19 MR#: [id number]: 113 ASA WU Acct ID:[id number]: Date: 1950[facility] Zip: [place] [address] Age: 69Location: ED Sex: F Room/Bed: Att Phy:Diagnosis: CHEST PAIN Opal Phy: Olegario Voss III, MDService Date: 11/09/19 Fam Phy:Interpreting Phy: Marvin Urbano MD Admit Phy: Ordering Phy: Nick Parra M.D. cc: ~ CT angio chest PE protocol CLINICAL HISTORY: 69 years-old Female presenting with chest pain, clinical concern for pulmonary embolus. TECHNIQUE: Multidetector CT angiography of the chest was performed after administration of intravenous contrast. 3-D volumetric and/or maximum intensity projection (MIP) images were subsequently reconstructed for review. IV contrast: 79 mL of Optiray 320. One or more dose lowering techniques were used consistent with the principles of ALARA (as low as reasonably achievable), including automatic exposure control, mA or kV adjustment to individual patient size, and/or use of iterative reconstruction. COMPARISON: 11/09/2019. CT DOSE (mGy.cm): The estimated cumulative dose is 788.09 mGy.cm. FINDINGS: Maintenance Planner topogram: Cholecystectomy clips. Pulmonary vasculature: The study is suboptimal for the assessment of the pulmonary vascular tree secondary to respiratory motion artifact. No filling defect within the pulmonary arteries to suggest embolus. Main pulmonary artery is not enlarged. No flattening of the interventricular septum. No intracardiac filling defect. No reflux of contrast into the hepatic veins. Remaining chest: Soft tissues: Normal thyroid and thoracic inlet. No axillary, supraclavicular, mediastinal, or hilar lymphadenopathy. Normal aorta. Mild multichamber enlargement of the heart. Coronary artery calcification. No pericardial or pleural effusion. Cholecystectomy clips. Lungs and airways: No pneumothorax. Central airways patent. Pulmonary arteries are not significantly enlarged relative to adjacent bronchi. No interlobular septal thickening. Mosaic attenuation extensively throughout the lungs. 5 mm subpleural lateral basal right lower lobe nodule (series 4 image 118). Musculoskeletal: Degenerative changes of the spine. IMPRESSION: 1. No evidence of pulmonary embolus. 2. Mild cardiomegaly. No significant evidence of volume overload or congestive change. 3. Mosaic attenuation suggests small airways disease. Given the mild diffuse bronchial wall thickening, findings suggest reactive airways disease or viral bronchiolitis. 4. 5 mm right lower lobe solid nodule. Follow-up per Fleischner Society 2017 recommendations below. Summary of Fleischner Society 2017 Recommendations (H Faviola et al. Guidelines for management of incidental pulmonary nodules detected on CT images: From the Fleischner Society 2017. Radiology 2017; 284: 228-243.) SOLID NODULES Single nodule; size < 6 mm * Low risk patients: No routine follow-up * High risk patients: Optional CT at 12 months Single nodule; size 6-8 mm * Low risk patients: CT at 6-12 months, then consider CT at 18-24 months * High risk patients: CT at 6-12 months, then at 18-24 months Single nodule; size > 8 mm * Either low or high risk patients: Considered CT at 3 months, PET/CT, or tissue sampling Multiple nodules; size < 6 mm * Low risk patients: No routine follow up * High risk patients: Optional CT at 12 months Multiple nodules; size 6-8 mm * Low risk patients: CT at 3-6 months, then consider CT at 18-24 months * High risk patients: CT at 3-6 months, then at 18-24 months Multiple nodules; size > 8 mm * Low risk patients: CT at 3-6 months, then consider at 18-24 months * High risk patients: CT at 3-6 months, then at 18-24 months SUBSOLID NODULES Single ground-glass nodule * Nodule size < 6 mm: No routine follow-up * Nodule size > or = 6 mm: CT at 6-12 months to confirm persistence, then CT every 2 years until 5 years Single part-solid nodule * Nodule size < 6 mm: No routine follow-up * Nodules size > or = 6 mm: CT at 3-6 months to confirm persistence. If unchanged and solid component remains < 6 mm, annual CT should be performed for 5 years Multiple nodules * Nodule size < 6 mm: CT at 3-6 months. If stable, consider CT at 2 and 4 years. * Nodules size > or = 6 mm: CT at 3-6 months. Subsequent management based on the most suspicious nodule(s) NOTE: 1) These guidelines apply to incidental nodules. These guidelines do NOT apply to patients younger than 35 years, immunocompromised patients, or patients with cancer. 2) Risk categories: * Low risk patients: Minimal or absent history of smoking and/or other known risk factors * High risk patients: History of smoking, exposure to other carcinogens, emphysema, fibrosis, upper lobe location, family history of lung cancer, etc. 3) If a nodule up to 8 mm is partly solid or is ground glass, further follow-up is required after 24 months to exclude possible slow growing adenocarcinoma. Electronically signed by: Marvin Urbano M.D. 11/09/2019 9:47 PM Dictated: 11/09/192136 Transcribed: 11/09/192136 Code Status & VTE Plan Code Status Full code VTE Prophylaxis Plan VTE Prophylaxis will be ordered: Yes PG Care Time/CCT Total # of Minutes Spent Total Time Spent with Patient: Total time spent is greater than 50% in coordination of care (as documented) at patient's floor/unit and/or counseling patient:
[2019-11-09] MEDS ORDERED: NITROGLYCERIN 2% OINTMENT 30GM TUBE ONE (23:06)
[2019-11-09] MEDS: NITROGLYCERIN 2% OINTMENT 30GM TUBE EXT SCH (23:10)
[2019-11-10] MEDS ORDERED: ALUMINUM/MAGNESIUM SUSP 30 ML UDC PO PRN (00:30)
[2019-11-10] MEDS ORDERED: ONDANSETRON INJ 2 MG/ML 2 ML VIAL IV PRN (00:30)
[2019-11-10] MEDS ORDERED: HYDROCODONE/ACETAMINOPHEN 7.5/325MG TAB PO PRN (00:30)
[2019-11-10] MEDS ORDERED: AMLODIPINE BESYLATE 5 MG TAB PO ONE (00:30)
[2019-11-10] MEDS ORDERED: MAGNESIUM HYDROXIDE SUSP 30 ML UDC PO PRN (00:30)
[2019-11-10] MEDS ORDERED: POLYETHYLENE (MIRALAX) 17 GM PACK PO PRN (00:30)
[2019-11-10] MEDS ORDERED: ACETAMINOPHEN 325 MG TAB PO PRN (00:30)
[2019-11-10] MEDS ORDERED: NAPROXEN 250 MG TAB PO PRN (00:37)
[2019-11-10] MEDS: DICYCLOMINE HCL 20 MG TAB PO SCH ×2 (00:55→08:51)
[2019-11-10] MEDS ORDERED: Nursing to Pharmacy Communication ONE (00:58)
[2019-11-10] MEDS: GABAPENTIN 600 MG TAB PO SCH ×2 (01:11→08:51)
[2019-11-10] MEDS ORDERED: GABAPENTIN 600 MG TAB PO ONE (01:15)
--- NOTE | 2019-11-10 03:09 | Emergency Department Note ---
Entered by Tanya Gonzalez acting as a scribe for Nick Parra MD History of Present Illness General Chief complaint: Chest Pain Stated complaint: CHEST PAIN Time Seen by Provider: 11/09/19 20:29 Source: patient Mode of arrival: EMS History of Present Illness Onset (ago): hour(s) (11:00AM today) Location: chest Pain Consistency: + constant Maximum Pain Intensity: 3 Current Pain Intensity: 2 Relieved By: + other (Nitroglycerin ) Associated symptoms: + denies other symptoms (GRIMES, congestion, leg pain), + chest pain and + other (leg swelling); no cough and no fever/chills Treatments prior to arrival: other (Nitroglycerin ) The patient is a 69 year old female with a family history of maternal and paternal DE, and a personal history of HTN, acid reflux (now controlled with Prilosec), who presents to the Emergency Room with complaints of chest pain. The patient began to experience mild chest pain around 11:00AM today that lasted for 1 hour. However, as the day went on her chest pain worsened and became constant. 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 She was given Nitroglycerin by EMS [employer] which she states resolved most of her pain. The patient currently rates her pain a 2/10 in severity. She also presents with leg swelling today that is not baseline. Of note, her last stress test was several years ago with no abnormalities. Additionally, she does not have a personal history of DE or blood clots. She also reports that she got a PNA vaccine a few weeks ago and had a reaction to the vaccine which included symptoms of body aches, arm swelling, and fever. She denies GRIMES, cough, congestion, fever, and leg pain. The patient offers no additional concerns at this time. Home Medications Home Medications Medication Instructions Recorded Confirmed Type diclofenac sodium [Voltaren] 2 g TOPICAL UD 10/26/18 11/09/19 History diphenhydramine HCl [Benadryl] 25 mg PO HS 10/26/18 11/09/19 History loperamide 2 mg PO HS 10/26/18 11/09/19 History naproxen sodium [Aleve] 220 mg PO BID PRN 10/26/18 11/09/19 History omeprazole 20 mg PO HS 10/26/18 11/09/19 History dicyclomine 20 mg tablet 20 mg PO BID #180 tab 07/02/19 11/09/19 Rx hydrocodone 7.5 mg-acetaminophen 1 tab PO BID PRN #30 tab 08/01/19 11/09/19 Rx 325 mg tablet gabapentin 600 mg tablet 1,200 mg PO TID #540 tab 08/07/19 11/09/19 Rx atenolol 100 mg tablet 100 mg PO DAILY #30 tab 09/05/19 11/09/19 Rx Allergies Allergy/AdvReac Type Severity Reaction Status Date / Time pneumococcal vaccine Allergy Severe RED ARM, Verified 11/09/19 22:04 HIVES, >TEMP tetanus toxoid, adsorbed Allergy Severe ARM Verified 11/09/19 22:03 SWELLING belladonna alkaloids Allergy Intermediate Dizziness Unverified 11/09/19 22:03 Past Med/Surg History Medical History Acid reflux Mid back pain (Resolved) Surgical History No pertinent past surgical history Family History Mother Myocardial infarction Father Myocardial infarction Social History Preferred Language: Lao Communication Ability: Effective Beliefs That Will Affect Care: None Current Living Situation: Parent Feels Safe at Home: Yes Smoking Status: Former smoker Hx Alcohol Use: No Hx Substance Use: No Review of Systems See HPI for pertinent positives & negatives. and A total of 10 systems reviewed and were otherwise negative Physical Exam Vital Signs Vital Signs - 24 hr 11/09/19 20:30 11/09/19 20:39 11/09/19 20:40 Temperature 36.7 C Temperature Source Oral Pulse Rate 66 63 Pulse Rate [Finger] Pulse Rhythm Regular Regular Pulse Rhythm [Finger] Pulse Strength Normal Pulse Strength [Finger] Respiratory Rate 20 20 Respiratory Effort / Characteristics Non-Labored Spontaneous Respiratory Depth Normal Respiratory Pattern Regular Blood Pressure 202/96 H Blood Pressure [Right Arm] Blood Pressure Mean 131 Blood Pressure Mean [Right Arm] Blood Pressure Position Lying Blood Pressure Position [Right Arm] Pulse Oximetry 96 96 95 Oxygen Delivery Method Room Air Room Air Room Air Sepsis Recent Fever Within 48 Hours No Sepsis New/Unexplained Change in Mental Status No Sepsis Action Taken by Nursing No Action Required 11/09/19 21:07 11/09/19 21:49 Temperature Temperature Source Pulse Rate Pulse Rate [Finger] 67 69 Pulse Rhythm Pulse Rhythm [Finger] Regular Regular Pulse Strength Pulse Strength [Finger] Normal Normal Respiratory Rate 22 22 Respiratory Effort / Characteristics Non-Labored Spontaneous Non-Labored Spontaneous Respiratory Depth Normal Normal Respiratory Pattern Regular Regular Blood Pressure Blood Pressure [Right Arm] 207/93 H 200/81 H Blood Pressure Mean Blood Pressure Mean [Right Arm] 131 120 Blood Pressure Position Blood Pressure Position [Right Arm] Lying Lying Pulse Oximetry 95 95 Oxygen Delivery Method Room Air Room Air Sepsis Recent Fever Within 48 Hours Sepsis New/Unexplained Change in Mental Status Sepsis Action Taken by Nursing GENERAL: Awake, alert, well-appearing, in no distress. BMI 41.2 HENT: Normocephalic, atraumatic. Oropharynx with dry mucous membranes and otherwise unremarkable. EYES: Normal conjunctiva. Sclera non-icteric. NECK: Supple. No nuchal rigidity. FROM. No JVD. RESPIRATORY: CTAB. CARDIAC: Regular rate, normal rhythm. Extremities warm and well perfused. Pulses equal. ABDOMEN: Soft, non-distended. No tenderness to palpation. No rebound or guarding. No masses. RECTAL: Deferred. MUSCULOSKELETAL: Chest examination reveals no tenderness. The back is symmetrical on inspection without obvious abnormality. There is no CVA tenderness to palpation. No joint edema. LOWER EXTREMITIES: Calves are equal size bilaterally and non-tender. Scant bilateral edema. No discoloration. NEURO: Normal sensorium. No sensory or motor deficits noted. SKIN: No rash or jaundice noted. Course Course 2050: Past medical records reviewed. The patient was evaluated in room B02. A complete history and physical exam was performed. 2232: [facility]. The patient verbally expressed understanding and agreement of the treatment plan. The patient will be evaluated for further treatment. Administered Medications Discontinued Medications Amlodipine Besylate (Norvasc) 5 mg PO NOW ONE Stop: 11/10/19 00:31 Last Admin: 11/10/19 00:55 Dose: 5 mg Documented by: [id number] Atenolol (Tenormin) 100 mg PO DAILY KAREN Stop: 12/10/19 08:59 Last Admin: 11/10/19 08:51 Dose: 100 mg Documented by: [id number] Dicyclomine HCl (Bentyl) 20 mg PO BID [facility] Stop: 12/10/19 00:29 Last Admin: 11/10/19 08:51 Dose: 20 mg Documented by: [id number] Admin: 11/10/19 00:55 Dose: 20 mg Documented by: [id number] Gabapentin (Neurontin) 1,200 mg PO TID [facility] Stop: 12/10/19 08:59 Last Admin: 11/10/19 08:51 Dose: 1,200 mg Documented by: [id number] Admin: 11/10/19 01:11 Dose: 1,200 mg Documented by: [id number] Gabapentin (Neurontin) 1,200 mg PO ONE ONE Stop: 11/10/19 01:16 Last Admin: 11/10/19 01:13 Dose: Not Given Documented by: [id number] Heparin Sodium (Porcine) (Heparin Sodium (Porcine)) 5,000 units SQ Q12 [facility] Stop: 12/10/19 08:59 Last Admin: 11/10/19 08:52 Dose: Not Given Documented by: [id number] Sodium Chloride (Nss) 500 mls @ 999 mls/hr IV .Q31M ONE Stop: 11/09/19 21:00 Last Infusion: 11/09/19 21:16 Dose: 0 mls/hr Documented by: [id number] Admin: 11/09/19 20:41 Dose: 999 mls/hr Documented by: [id number] Ioversol (Optiray 320 125ml) 79 ml IV ONCE PRN PRN Reason: Interaction Checking Stop: 11/13/19 21:31 Last Admin: 11/09/19 21:32 Dose: 79 ml Documented by: [id number] Nitroglycerin (Nitro-Bid 2%) 1 inch EXT Q6H [facility] Stop: 12/09/19 22:44 Last Admin: 11/10/19 10:36 Dose: 1 inch Documented by: [id number] Admin: 11/10/19 04:25 Dose: 1 inch Documented by: [id number] Admin: 11/09/19 23:10 Dose: 1 inch Documented by: [id number] Nitroglycerin (Nitro-Bid 2%) Confirm Administered Dose 18 inch .ROUTE .STK-MED ONE Stop: 11/09/19 23:07 Last Admin: 11/09/19 23:16 Dose: 1 inch Documented by: [id number] Medical Decision Making Differential Diagnosis Differential diagnosis includes but is not limited to etiologies such as cardiac ischemia, aortic dissection, pulmonary embolism, pneumonia, pneumothorax, musculoskeletal, infections, pericarditis, myocarditis, esophageal rupture, gastrointestinal, as well as others were entertained. Medical Records Attestation: I reviewed the patient's medical records. Home Medications Current Medication List: was personally reviewed by me Laboratory Data Attestation: I reviewed the patient's lab results. Result diagrams: 11/10/19 05:36 11/10/19 05:36 Lab Results 11/09/19 11/09/19 Range/Units 20:30 20:30 WBC 7.03 (4.8-10.8) K/uL RBC 3.94 L (4.2-5.4) M/uL Hgb 11.8 L (12.0-16.0) g/dL Hct 35.8 L (37-47) % MCV 90.9 (80-100) fL MCH 29.9 (25-34) pg MCHC 33.0 (32-36) g/dL RDW Std Deviation 43.6 (36.4-46.3) fL RDW Coeff of Jonathon 13.1 (11.5-14.5) % Plt Count 178 (130-400) K/uL MPV 9.6 (7.4-10.4) fL Immature Gran % (Auto) 0.1 % Neut % (Auto) 50.6 % Lymph % (Auto) 37.3 % [place] % (Auto) 9.2 % Eos % (Auto) 2.7 % Baso % (Auto) 0.1 % Immature Gran # (Auto) 0.01 (0.00-0.02) K/uL Neut # (Auto) 3.55 (1.4-6.5) K/uL Lymph # (Auto) 2.62 (1.2-3.4) K/uL [place] # (Auto) 0.65 H (0.11-0.59) K/uL Eos # (Auto) 0.19 (0-0.5) K/uL Baso # (Auto) 0.01 (0-0.2) K/uL Sodium 139 (136-145) mmol/L Potassium 4.0 (3.5-5.1) mmol/L Chloride 106 (98-107) mmol/L Carbon Dioxide 29 (21-32) mmol/L Anion Gap 4.0 (3-11) BUN 30 H (7-18) mg/dl Creatinine 1.39 H (0.6-1.2) mg/dl Est Cr Clr Drug Dosing 45.8 ml/min Est GFR ( Amer) 45.3 Est GFR (Non-Af Amer) 39.1 BUN/Creatinine Ratio 21.9 H (10-20) Glucose 159 H (70-99) mg/dl Calcium 8.7 (8.5-10.1) mg/dl Phosphorus 4.1 (2.5-4.9) mg/dl Magnesium 1.9 (1.8-2.4) mg/dl Total Bilirubin 0.3 (0.2-1) mg/dl AST 19 (15-37) U/L ALT 29 (12-78) U/L Alkaline Phosphatase 104 (45-117) U/L Troponin I < 0.015 (0-0.045) ng/ml Total Protein 7.2 (6.4-8.2) gm/dl Albumin 3.7 (3.4-5.0) gm/dl Globulin 3.5 (2.5-4.0) gm/dl Albumin/Globulin Ratio 1.1 (0.9-2) Lipase 105 (73-393) U/L Imaging Data Radiologist's Impression: Radiology results as stated below per my review and the radiologist's interpretation: XR chest 1V portable CLINICAL HISTORY: 69 years-old Female presenting with Chest Pain. TECHNIQUE: Portable upright AP view of the chest was obtained. COMPARISON: None. FINDINGS: Cardiac silhouette mildly enlarged. Pulmonary vasculature is not significantly engorged. Mildly low lung volumes. No focal opacity. No large effusion or pneum othorax. Degenerative changes of the thoracic spine. Upper abdomen normal. IMPRESSION: 1. No acute cardiopulmonary disease. Electronically signed by: Marvin Urbano M.D. 11/09/2019 9:[address] angio chest PE protocol CLINICAL HISTORY: 69 years-old Female presenting with chest pain, clinical concern for pulmonary embolus. TECHNIQUE: Multidetector CT angiography of the chest was performed after administration of intravenous contrast. 3-D volumetric and/or maximum intensity projection (MIP) images were subsequently reconstructed for review. IV contrast: 79 mL of Optiray 320. One or more dose lowering techniques were used consistent with the principles of ALARA (as low as reasonably achievable), including automatic exposure control, mA or kV adjustment to individual patient size, and/or use of iterative reconstruction. COMPARISON: 11/09/2019. CT DOSE (mGy.cm): The estimated cumulative dose is 788.09 mGy.cm. 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 Pulmonary vasculature: The study is suboptimal for the assessment of the pulmonary vascular tree secondary to respiratory motion artifact. No filling defect within the pulmonary arteries to suggest embolus. Main pulmonary artery is not enlarged. No flattening of the interventricular septum. No intracardiac filling defect. No reflux of contrast into the hepatic veins. Remaining chest: Soft tissues: Normal thyroid and thoracic inlet. No axillary, supraclavicular, mediastinal, or hilar lymphadenopathy. Normal aorta. Mild multichamber enlargement of the heart. Coronary artery calcification. No pericardial or pleural effusion. Cholecystectomy clips. Lungs and airways: No pneumothorax. Central airways patent. Pulmonary arteries are not significantly enlarged relative to adjacent bronchi. No interlobular septal thickening. Mosaic attenuation extensively throughout the lungs. 5 mm subpleural lateral basal right lower lobe nodule (series 4 image 118). Musculoskeletal: Degenerative changes of the spine. IMPRESSION: 1. No evidence of pulmonary embolus. 2. Mild cardiomegaly. No significant evidence of volume overload or congestive change. 3. Mosaic attenuation suggests small airways disease. Given the mild diffuse bronchial wall thickening, findings suggest reactive airways disease or viral bronchiolitis. 4. 5 mm right lower lobe solid nodule. Follow-up per Fleischner Society 2017 recommendations below. Summary of Fleischner Society 2017 Recommendations (H Faviola et al. Guidelines for management of incidental pulmonary nodules detected on CT images: From the Fleischner Society 2017. Radiology 2017; 284: 228-243.) SOLID NODULES Single nodule; size < 6 mm * Low risk patients: No routine follow-up * High risk patients: Optional CT at 12 months Single nodule; size 6-8 mm * Low risk patients: CT at 6-12 months, then consider CT at 18-24 months * High risk patients: CT at 6-12 months, then at 18-24 months Single nodule; size > 8 mm * Either low or high risk patients: Considered CT at 3 months, PET/CT, or tissue sampling Multiple nodules; size < 6 mm * Low risk patients: No routine follow up * High risk patients: Optional CT at 12 months Multiple nodules; size 6-8 mm * Low risk patients: CT at 3-6 months, then consider CT at 18-24 months * High risk patients: CT at 3-6 months, then at 18-24 months Multiple nodules; size > 8 mm * Low risk patients: CT at 3-6 months, then consider at 18-24 months * High risk patients: CT at 3-6 months, then at 18-24 months SUBSOLID NODULES Single ground-glass nodule * Nodule size < 6 mm: No routine follow-up * Nodule size > or = 6 mm: CT at 6-12 months to confirm persistence, then CT every 2 years until 5 years Single part-solid nodule * Nodule size < 6 mm: No routine follow-up * Nodules size > or = 6 mm: CT at 3-6 months to confirm persistence. If unchanged and solid component remains < 6 mm, annual CT should be performed for 5 years Multiple nodules * Nodule size < 6 mm: CT at 3-6 months. If stable, consider CT at 2 and 4 years. * Nodules size > or = 6 mm: CT at 3-6 months. Subsequent management based on the most suspicious nodule(s) NOTE: 1) These guidelines apply to incidental nodules. These guidelines do NOT apply to patients younger than 35 years, immunocompromised patients, or patients with cancer. 2) Risk categories: * Low risk patients: Minimal or absent history of smoking and/or other known risk factors * High risk patients: History of smoking, exposure to other carcinogens, emphysema, fibrosis, upper lobe location, family history of lung cancer, etc. 3) If a nodule up to 8 mm is partly solid or is ground glass, further follow-up is required after 24 months to exclude possible slow growing adenocarcinoma. Electronically signed by: Marvin Urbano M.D. 11/09/2019 9:47 PM ECG Data Attestation: I personally reviewed and interpreted this ECG as follows: Indication: + chest pain Rate (beats per minute): 72 Rhythm: + normal sinus ECG [place]: + Normal ECG Findings: + Other (no acute ischemia, QTc is 407); no PACs and no PVCs Blood Pressure Blood Pressure Findings: Elevated blood pressure Blood Pressure Disposition: further management by hospitalist [facility] Narrative The patient is a pleasant 69-year-old woman with a past medical history of hypertension who presents emergency department with substernal chest pain which improved after receiving nitroglycerin by EMS per HPI. On arrival the patient is in no acute distress, hypertensive 200/1 100s but vital signs otherwise stable. On arrival the patient reports her pain has mostly resolved. WBC within normal limits. H/H 11.8/35.8 approximate 2 prior range of values though with no recent values for comparison. Creatinine 1.39 increased from recent. Chemistry without acidosis. Electrolytes and LFTs unremarkable. Troponin nega tive/undetectable. CTA of the chest was negative for PE. There is question of possible reactive airway disease however no focal infiltrates to suggest pneumonia. Patient continued to feel improved during her ED observation. Blood pressure still elevated 190/70s with heart rate in the 60s. Patient reports she takes atenolol for her blood pressure and is under the understanding that she should take hydrochlorothiazide as needed which she has not taken in some time. Given the patient's symptoms that did improve with nitroglycerin and her uncontrolled blood pressure reasonable to admit the patient for further management. Case was discussed with Dr. Stiles, [facility] hospitalist, who will evaluate the patient for admission. Impression & Plan Substernal chest pain, Hypertensive urgency Discharge Plan Visit Data *Final* Discharge Date/Time: 11/10/19 00:15 Chief Complaint: Chest Pain Stated Complaint: CHEST PAIN ED Provider: Nick Parra Discharge Problem: Substernal chest pain, Hypertensive urgency Patient Disposition: Admitted As Inpatient Discharge Instructions Interventions: ED Discharge Assessment Last Done: 11/10/19 00:00 The scribe's documentation has been prepared under my direction and personally reviewed by me in its entirety. I confirm that the note above accurately r eflects all work, treatment, procedures, and medical decision making performed by me.
[2019-11-10] MEDS: NITROGLYCERIN 2% OINTMENT 30GM TUBE EXT SCH ×2 (04:25→10:36)
[2019-11-10 06:13] LABS: Basophils # (auto) 0.02 K/uL (0-0.2); Basophils % (auto) 0.4 %; Eosinophils # (auto) 0.14 K/uL (0-0.5); Eosinophils % (auto) 2.5 %; Hematocrit (blood only) 34.2 % (37-47); Hemoglobin 11.3 g/dL (12.0-16.0); Immature Granulocytes # (auto) 0.02 K/uL (0.00-0.02); Immature Granulocytes % (auto) 0.4 %; Lymphocytes # (auto) 1.72 K/uL (1.2-3.4); Lymphocytes % (auto) 30.4 %; Mean Corpuscular Hemoglobin 29.7 pg (25-34); Monocytes # (auto) 0.55 K/uL (0.11-0.59); Monocytes % (auto) 9.7 %; Neutrophils # (auto) 3.21 K/uL (1.4-6.5); Neutrophils % (auto) 56.6 %; Platelet Count 159 K/uL (130-400); White Blood Count 5.66 K/uL (4.8-10.8)
[2019-11-10 06:16] LABS: Partial Thromboplastin Time 27.1 Seconds (21.0-31.0); Prothrombin Time 10.4 Seconds (9.0-12.0)
[2019-11-10 06:45] LABS: Albumin Level 3.3 gm/dl (3.4-5.0); BUN Creatinine Ratio 29.4 (10-20); Bilirubin,Total 0.4 mg/dl (0.2-1); Calcium 8.6 mg/dl (8.5-10.1); Est GFR (African American) 79.9; Est GFR (Non-African American) 68.9; Globulin 3.2 gm/dl (2.5-4.0); Potassium 4.1 mmol/L (3.5-5.1); Total Protein 6.5 gm/dl (6.4-8.2)
--- NOTE | 2019-11-10 07:37 | Hospitalist Progress Note ---
Date of Service November 10, 2019 Results & Data Vital Signs (Past 12 Hours) Vital Signs Temp Pulse Pulse Resp BP BP Pulse Ox 11/10/19 06:59 36.3 C L 72 16 161/72 H 92 11/10/19 03:28 36.3 C L 70 20 154/76 H 91 11/10/19 01:45 159/72 H 11/10/19 00:45 62 11/10/19 00:38 36.4 C L 62 18 228/97 H 97 11/10/19 00:00 63 18 181/98 H 98 11/09/19 23:08 66 20 209/80 H 97 11/09/19 21:49 69 22 200/81 H 95 11/09/19 21:07 67 22 207/93 H 95 11/09/19 20:40 95 11/09/19 20:39 63 20 96 11/09/19 20:30 36.7 C 66 20 202/96 H 96
[2019-11-10] MEDS ORDERED: ATENOLOL 50 MG TABLET PO SCH (09:00)
[2019-11-10] MEDS ORDERED: DICLOFENAC SOD 1% GEL 100 GM TUBE EXT PRN (09:00)
[2019-11-10] MEDS ORDERED: HEPARIN SOD 5,000 UNIT/0.5 ML VIAL SQ SCH (09:00)
--- NOTE | 2019-11-10 18:12 | Discharge Summary ---
Date of Service November 10, 2019 Admission HPI Per Admitting Provider The patient is a 69-year-old female with a past medical history including hypertension, peripheral neuropathy, GERD, diarrhea who presents the emergency department with acute onset of substernal chest discomfort that began early in the day and worsened in intensity as the day progressed. She did receive 3 sublingual nitroglycerin by EMS prehospitalization, which she reports did resolve her chest pain. She reports having a stress test about 20 years ago, but no cardiac work-up since. Admission Exam Per Admitting Provider The patient is awake, alert and oriented 3, well developed and well nourished, normocephalic and atraumatic, lying in bed and in no acute distress. HEENT--PERRL, EOMI, mucous membranes and oropharynx dry. Neck--supple. No JVD. No bruits. Thyroid normal, trachea midline, no adenopathy. Heart--normal S1 and S2. No murmurs, rubs or gallops. Lungs--clear bilaterally, no respiratory distress, no accessory muscle use. Abdomen--normal bowel sounds and soft. Nontender. Nondistended, no hernias or masses, no organomegaly. Extremities--no cyanosis or clubbing. No edema. There are good distal pulses b/l. Dermatologic--normal skin turgor, normal color, no abnormal lymph nodes, no rash. Neurologic--cranial nerves II through XII grossly intact. Rheumatologic--normal range of motion. Psychiatric--normal affect. Principal Diagnosis Chest Pain Discharge Exam Constitutional WD/WN, vitals as above + obese and cooperative Eyes + anicteric sclerae ENMT external ear and nose normal, oropharynx normal Neck normal visual inspection Respiratory normal respiratory effort, lungs clear to auscultation Cardiovascular RRR, no murmur, no edema Heart Sounds: normal S1 and normal S2 Chest pain reproducible on L side of sternum when palpating intercostal muscles Gastrointestinal (Abdomen) normal bowel sounds, soft, nontender, no hepatosplenomegaly Skin no rashes, warm and dry Neurologic No focal deficits Psychiatric A+Ox3, euthymic affect Discharge Data Allergies Allergy/AdvReac Type Severity Reaction Status Date / Time pneumococcal vaccine Allergy Severe RED ARM, Verified 11/09/19 22:04 HIVES, >TEMP tetanus toxoid, adsorbed Allergy Severe ARM Verified 11/09/19 22:03 SWELLING belladonna alkaloids Allergy Intermediate Dizziness Unverified 11/09/19 22:03 Consultations 11/09/19 22:13 ED Decision to Admit Stat 11/10/19 00:30 Consult Case Management - Discharge Planning Routine 11/10/19 10:18 Consult [facility] obstetric anaesthetist Routine Ordered Studies 11/09/19 20:55 CT angio chest PE protocol Stat Hospital Course (1) Chest pain: Ms. Bajwa was hospitalized at [facility] on 11/09/19- 11/10/19 for evaluation of chest pain. Her discomfort began the morning of 11/09 and started in her midback before migrating to the front of the chest. It progressively worsened as the day went on, without any-pain free periods until she came to the emergency department in the evening of 11/09. The pain was worse with deep inspiration. There was no associated SOB, N/V or diaphoresis. She denied a history of progressive fatigue or dyspnea on exertion in the days/weeks preceding her admission. She was given 3 sublingual nitroglycerin tablets in the EMS ride to the ED, after which her pain subsided. Troponin x2 was undetectable. Serial EKGs showed normal sinus rhythm without evidence of ischemia. CXR showed no active disease. Chest CT scan showed no evidence of pulmonary embolism or aortic dissection. An ECHO was performed during her stay, which showed no regional wall motion abnormalities, an ejection fraction of 60-65%, normal LV systolic function no significant valvular disease. Heart Score 4. Clinical impression was that chest pain was MSK in origin (given history, duration of discomfort, and reproducibility on exam). Her blood pressure was elevated during her hospital stay (systolic as high as 228 and diastolic as high as 97). She was treated with her home dose of atenolol. She was advised to get a home BP cuff to measure and record pressures, as she may need an increase in her home dose. Review of most recent lipid panel showed total cholesterol of of 211, LDL of 102 and HDL of 46, ratio 4.58. Ms. Bajwa's oxygen saturation on room air ran 91-92 on room air during her hospital stay. She provides a history of snoring at night and tiredness throughout the day. She has never had a sleep study. These findings were concerning for possible obstructive sleep apnea. Outpatient items to do: 1. Cardiac Stress Test as outpatient in 1-2 weeks. 2. Order home BP cuff for close monitoring - titrate home BP meds accordingly. 3. Consider initiation of statin therapy given elevated cholesterol ratio 4. order sleep study for evaluation of suspected RACHAEL Total Time Total Time Spent Total Time Spent (In Minutes): greater than 30 minutes Discharge Plan Discharge Items Patient Disposition: Home - Self-Care Reason For Visit: SUBSTERNAL CHEST PAIN Discharge Diagnosis: Chest pain Activity: Resume your previous activity Lifting: Gradually increase as tolerated Bathing: No limitations Sexual Activity: When tolerated Exercise/Sports: Gradually increase as tolerated Driving/Machine Use: No limitations Weightbearing: Full weightbearing Non-emergency contact: Primary Care Provider Call non-emergency contact if: you have any medication questions, your symptoms worsen and your pain is concerning for you Follow-up/Referrals: Olegario Voss III, MD [Primary Care Provider] - Diet: Heart Healthy Addtl Attending Provider Instructions: You were hospitalized overnight at [facility] from 11/09/19 to 11/10/19 for evaluation of chest pain. EKGs, Chest Xray, Chest CT (cat scan) and blood troponin levels (markers of cardiac strain) were all normal. The source of your chest discomfort was therefore not felt to be cardiac or pulmonologic, or coming from the heart or lungs. Instead, your chest pain was more likely to be from inflammation and spasm of the muscle between your ribs. On the day of discharge, your pain was completely resolved. For further investigation of your chest pain, we advised you to have a cardiac stress test with [facility] within 1-2 weeks after discharge. This test will allow your doctors to know if you have a blockage in the arteries of your heart. During your hospital stay your blood pressure was high. We treated it with your home dose of atenolol. We had a lengthy discussion at your bedside about elevated blood pressure readings while in the hospital. We recommended you get a home BP cuff to measure and keep a diary of your blood pressures after discharge. This will help your family doctor decide if he should make a change to your blood pressure medication. Your oxygenation level was also found to be slightly below normal. You told us frequently snored at night and were fatigue throughout the day, most of the time. It is possible you may be suffering from a condition known as obstructive sleep apnea. We recommended you have your family doctor order a sleep study to further assess. Pending Studies at Discharge: No Stand-Alone Forms: Call Back Authorization, [facility], Smoking Cessation Medications and DC Order Prescriptions: Continued dicyclomine 20 mg tablet 20 mg PO BID Qty: 180 RF: 3 hydrocodone-acetaminophen 7.5-325 mg tablet 1 tab PO BID PRN (Reason: pain) Qty: 30 RF: 0 gabapentin 600 mg tablet 1,200 mg PO TID Qty: 540 RF: 3 atenolol 100 mg tablet 100 mg PO DAILY Qty: 30 RF: 5 loperamide 2 mg Tablet 2 mg PO HS RF: 0 diphenhydramine HCl [Benadryl] 25 mg Capsule 25 mg PO HS RF: 0 omeprazole 20 mg capsule,delayed release(DR/EC) 20 mg PO HS RF: 0 diclofenac sodium [Voltaren] 1 % Gel 2 g TOPICAL UD RF: 0 naproxen sodium [Aleve] 220 mg Capsule 220 mg PO BID PRN (Reason: Pain) RF: 0 Discharge Orders: Discharge Order (Routine); Ordered 11/10/19 Ordered By: Dinorah Lee/Other Patient Handouts: Heart Attack First Aid, Heart Attack Warning Signs Admission Data Admit Date/Time: 11/09/19 22:53 Attending Provider: Wild Caraballo Admit Provider: Golden Stiles Primary Care Provider: Olegario Voss III Other Providers: Golden Stiles Other Interventions: Discharge Summary Assessment (RN) Last Done: 11/10/19 12:35 DC Date/Time DO NOT enter until pt leaves facility: 11/10/19 13:48 Supervising Physician Co-Signing Physician Notes I personally examined the patient and verified all raines points of history and exam, discussed case, and agree with decision making with Dr Meier. feeling better chest pain resolved - was back to L side of chest nonstop for hours never a zero. also noted to have low-end SpO2 in AM. snores, tired all the time. vitals noted nad heent nc at mmm thick neck breathing unlabored no accessory muscles good effort skin no rashes no pallor or icterus. pain exquisitely reproducible - balanced ligamentous tension done w some improvement in tissue texture chest pain - extensive discussion. by symptoms, this appears to be almost certainly rib related - pain from back going to chest, more stabbing in nature, in a distrubution of intercostals/reproducible and responded to OMT. 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 with pain for HOURS and never a zero, negative troponins almost 100% negative predictive value. looking at her by risks, she has atypical symptoms with moderate risk and therefore stress testing would be reasonable - she seems to feel better wtih this approach too - so stress echo as outpt snoring/fatigue - sleep study as outpt, extensive discussion on RACHAEL, treatment, etc. answered all questions to the best of my ability. safe/stable for home, otherwise as above Resident Activity Tracking Resident Involvement: Resident Care Provided Care Provided: Adult Hospital Medicine
[2019-11-10] MEDS ORDERED: PANTOprazole 40 MG TAB PO SCH (21:00)
[2019-11-10] MEDS ORDERED: LOPERAMIDE HCL 2 MG CAP PO SCH (21:00)
--- NOTE | 2019-11-11 18:18 | Billing Data ---
Date of Service November 11, 2019 Coding Level of Care Code 34431 OBS Care - Discharge
== END 2019-11-10 13:48 | disposition home or self-care (01) ==
LOC: ED 20:24 → 2E 20:24 → SUATTDRO 22:53 → 2E 11-10 00:15

== ENCOUNTER 2022-06-08 17:16 | Observation (INO) ==
--- NOTE | 2022-06-08 17:26 | Emergency Department Note ---
Impression & Plan Syncope and collapse ADMIT ED Provider Note HPI: The patient is a 72-year-old female with history of type 2 diabetes, hypertension, hyperlipidemia, presents the emergency department today after a syncopal event. Patient went to her doctor's office today and [place] and states that she went to go to the bathroom and remembers attempting to urinate and then waking up on the floor. Apparently her sister was with her and was close by, found her in the bathroom and EMS was contacted. Patient's sister tells me that the patient has had 3 such episodes in about the past 6 weeks. On arrival here to the ED the patient is alert, she is in no acute distress on my initial assessment. Denies any chest pain or shortness of breath, states she does have some pain in the back of her head. Patient states that she went to see her doctor today because she has had some ongoing diarrhea for about the past 3 days. She denies any abdominal pain. Denies any vomiting. ROS: -GI: Diarrhea -Neuro: Syncopal event *10 point review systems was conducted and is otherwise negative unless stated above *Outpatient medications and allergy history reviewed PE: General: Alert, NAD HEENT: Normocephalic, atraumatic Eyes: Extraocular eye movement is intact, no scleral erythema Pulmonary: Clear to auscultation bilaterally, no wheezing Cardio: Regular rate and rhythm GI: Abdomen is soft, nontender : No suprapubic tenderness MSK: No evidence of trauma or malformation of the extremities, no edema, there is pain with palpation in the area of the upper lumbar spine, no step-off deformity Skin: No evidence of rash Neuro: Alert, no focal deficits 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 Moderate disc degeneration at L1-2, L3-4, L4-5 and L5-S1. Mild bilateral sacroiliac degenerative arthropathy. Spondylolisthesis at L3-4. No comparisons. Radiologist: Shanika Dunn MD Medical Decision Making: Patient presented to the emergency department with a chief complaint of a syncopal event earlier today at her doctor's office. CT imaging of the head does not show any evidence of any acute intracranial process, CT imaging of the cervical spine does not show any evidence of fracture, CT imaging of the lumbar spine does not show any evidence of fracture. Patient's lab work shows a normal troponin, EKG shows normal sinus rhythm with a rate of 85. BUN and creatinine are slightly elevated, hemoglobin is stable, no leukocytosis Patient was given IV fluids here in the ED, on my reassessment the patient states that she still does not feel well, states she has some back discomfort, family is very concerned about her episodes of syncope that are been occurring over the past month or so. Given the patient's age and comorbidities, hospitalist service was consulted for admission. Unclear source for her syncopal events at this time, EKG does not show any evidence of high degree heart block, she has not been bradycardic here in the ED. Patient may benefit from inpatient work-up including echocardiogram. Patient was admitted in stable condition for further care. Diagnosis: 1. Syncope and collapse 2. Lower back pain status post fall 3. Posterior head pain status post Disposition: Admission Tip Holliday DO Emergency Medicine Past Med/Surg History Medical History (Updated 06/08/22 @ 22:45 by Tip Holliday DO) Acid reflux UNDER CONTROL Chronic back pain Depression Diabetes mellitus type 2, uncontrolled (11/2020) Diabetes mellitus, type 2 Hyperlipidemia Hypertension Osteoarthritis Peripheral neuropathy FEET PVCs (premature ventricular contractions) HX-DX'D 1986-ON [facility] [place]-F/U DR BRADFORD Stomach ulcer HX Surgical History H/O knee surgery RIGHT ARTHROSCOPY History of 2 sections History of appendectomy History of cataract surgery left History of cholecystectomy History of esophagogastroduodenoscopy (EGD) History of foot surgery R/L HEEL SPURS History of tonsillectomy and adenoidectomy Hx of hand surgery R/L TRIGGER FINGERS X 3-4 S/P trigger finger release Family History Mother Myocardial infarction Pulmonary emphysema Hypertension Father Diabetes Myocardial infarction Hypertension Brother Hypertension Other No family history of adverse response to anesthesia Social History (Updated 11/19/21 @ 09:16 by Lay Demarco RN) Smoking Status: Never smoker Second Hand Exposure: No; Hx Alcohol Use: Yes Hx Substance Use: Yes Preferred Language: Arabic Communication Ability: Effective Mink Rancher Required: No Beliefs That Will Affect Care: None Current Living Situation: Family Current Living Situation Comment: LIVES WITH SISTER current occupational status: retired Feels Safe at Home: Yes Assistive Devices: Glasses Allergies Allergies Allergy/AdvReac Type Severity Reaction Status Date / Time pneumococcal vaccine Allergy Severe RED ARM, Verified 04/01/22 14:05 HIVES, >TEMP tetanus toxoid, adsorbed Allergy Severe ARM Verified 04/01/22 14:05 SWELLING belladonna alkaloids Allergy Intermediate Dizziness Verified 04/01/22 14:05 Home Meds Home Medications Medication Instructions Recorded Confirmed diphenhydramine HCl 25 mg capsule 25 mg PO HS 10/26/18 04/01/22 (Benadryl) loperamide 2 mg tablet 2 mg PO HS 10/26/18 04/01/22 naproxen sodium 220 mg capsule 440 mg PO BID PRN 10/26/18 04/01/22 (Aleve) acetaminophen 500 mg tablet 1,000 mg PO Q6H PRN 11/19/21 04/01/22 glipizide 2.5 mg tablet, extended 2.5 mg PO QAM 11/19/21 04/01/22 release 24 hr Previous Rx's Medication Instructions Recorded dicyclomine 20 mg tablet 20 mg PO BID #180 tab 07/02/19 diclofenac sodium 1 % topical gel 2 g TOPICAL BID PRN #100 gm 01/28/20 (Voltaren) colchicine 0.6 mg tablet (Colcrys) See Rx Instructions PO BID #20 tab 02/19/20 alprazolam 0.5 mg tablet 0.5 mg PO BID PRN #30 tab 04/01/20 cyclobenzaprine 10 mg tablet 10 mg PO TID PRN #60 tab 02/06/21 atenolol 100 mg tablet 100 mg PO HS #90 tab 05/01/21 gabapentin 600 mg tablet 1,200 mg PO TID #540 tab 05/01/21 blood-glucose meter (Accu-Chek See Rx Instructions .ROUTE 08/18/21 Kimberley Plus Meter) .COMPLEX #1 kit omeprazole 20 mg capsule,delayed 20 mg PO HS #90 cap 08/18/21 release blood sugar diagnostic (Accu-Chek #100 ea 11/03/21 Kimberley Plus test strp) lancets (Accu-Chek Multiclix #100 ea 11/03/21 Lancet) losartan 100 mg tablet 100 mg PO HS #90 tab 04/01/22 peg 3350-electrolytes 236 240 ml PO Q10M #4000 ml 04/27/22 gram-22.74 gram-6.74 gram-5.86 gram solution (Golytely) fluoxetine 40 mg capsule 40 mg PO HS #90 cap 04/29/22 hydrocodone 7.5 mg-acetaminophen 1 tab PO BID PRN #30 tab 05/27/22 325 mg tablet atorvastatin 20 mg tablet 20 mg PO HS #90 tab 06/01/22 Results & Data (ED) Vital Signs Vital Signs - 24 hr 06/08/22 17:02 06/08/22 17:21 06/08/22 17:24 Temperature 36.5 C Temperature Source Oral Pulse Rate 84 81 Pulse Rate [Finger] Respiratory Rate 26 H Respiratory Effort / Characteristics Non-Labored Spontaneous Respiratory Depth Normal Blood Pressure 171/110 H Blood Pressure [Right Arm] Blood Pressure Mean 130 Blood Pressure Mean [Right Arm] Blood Pressure Position Lying Blood Pressure Position [Right Arm] Pulse Oximetry 94 92 96 Oxygen Delivery Method Room Air Room Air Sepsis Recent Fever Within 48 Hours No Sepsis New/Unexplained Change in Mental Status No Sepsis Action Taken by Nursing No Action Required 06/08/22 20:30 06/08/22 22:03 Temperature Temperature Source Pulse Rate Pulse Rate [Finger] 71 74 Respiratory Rate 18 17 Respiratory Effort / Characteristics Non-Labored Spontaneous Non-Labored Spontaneous Respiratory Depth Normal Normal Blood Pressure Blood Pressure [Right Arm] 173/101 H 177/78 H Blood Pressure Mean Blood Pressure Mean [Right Arm] 125 111 Blood Pressure Position Blood Pressure Position [Right Arm] Lying Lying Pulse Oximetry 97 97 Oxygen Delivery Method Room Air Room Air Sepsis Recent Fever Within 48 Hours Sepsis New/Unexplained Change in Mental Status Sepsis Action Taken by Nursing Laboratory Data Result diagrams: 06/08/22 17:48 06/08/22 19:11 Lab Results 06/08/22 06/08/22 06/08/22 Range/Units 17:48 17:48 17:48 WBC 8.12 (4.8-10.8) K/ul RBC 4.59 (3.93-5.22) M/uL Hgb 13.7 (12.0-16.0) g/dl Hct 40.3 (34.1-44.9) % MCV 87.8 (80.0-100.0) fL MCH 29.8 (25.0-34.0) pg MCHC 34.0 (32.0-36.0) g/dL RDW Std Deviation 39.5 (36.4-46.3) fL RDW Coeff of Jonathon 12.4 (11.5-14.5) % Plt Count 223 (130-400) K/uL MPV 10.1 (9.4-12.3) fL Immature Gran % (Auto) 0.4 % Neut % (Auto) 65.8 % Lymph % (Auto) 22.3 % [place] % (Auto) 10.3 % Eos % (Auto) 0.7 % Baso % (Auto) 0.5 % Neut # (Auto) 5.34 (1.4-6.5) K/uL Lymph # (Auto) 1.81 (1.2-3.4) K/uL [place] # (Auto) 0.84 H (0.24-0.82) K/uL Eos # (Auto) 0.06 (0-0.50) K/uL Baso # (Auto) 0.04 (0-0.2) K/uL Immature Gran # (Auto) 0.03 H (0.00-0.02) K/uL APTT 22.6 (21.0-31.0) Seconds PTT Ratio 0.8 Sodium 137 (136-145) mmol/L Potassium TNP Chloride 103 (98-107) mmol/L Carbon Dioxide 23 (21-32) mmol/L Anion Gap 11 (3-11) BUN 28 H (6-23) mg/dl Creatinine 1.27 H (0.6-1.2) mg/dl Est Cr Clr Drug Dosing 43.6 ml/min Est GFR ( Amer) 49.5 ml/min Est GFR (Non-Af Amer) 42.7 ml/min BUN/Creatinine Ratio 22.0 H (10-20) Glucose 138 H (70-99(Fasting)) mg/dl Calcium 9.8 (8.5-10.1) mg/dl Magnesium 1.8 (1.7-2.4) mg/dl Total Bilirubin 0.6 (0.2-1.0) mg/dl AST TNP ALT 16 (7-52) U/L Alkaline Phosphatase 91 (34-104) U/L Troponin I High Sens 12.3 (0-14) pg/ml Total Protein 7.8 (6.0-8.3) gm/dl Albumin 4.5 (3.4-5.0) gm/dl Globulin 3.3 (2.5-4.0) gm/dl Albumin/Globulin Ratio 1.4 (0.9-2) TSH (0.300-4.500) uIu/ml 06/08/22 06/08/22 Range/Units 17:48 19:11 WBC (4.8-10.8) K/ul RBC (3.93-5.22) M/uL Hgb (12.0-16.0) g/dl Hct (34.1-44.9) % MCV (80.0-100.0) fL MCH (25.0-34.0) pg MCHC (32.0-36.0) g/dL RDW Std Deviation (36.4-46.3) fL RDW Coeff of Jonathon (11.5-14.5) % Plt Count (130-400) K/uL MPV (9.4-12.3) fL Immature Gran % (Auto) % Neut % (Auto) % Lymph % (Auto) % [place] % (Auto) % Eos % (Auto) % Baso % (Auto) % Neut # (Auto) (1.4-6.5) K/uL Lymph # (Auto) (1.2-3.4) K/uL [place] # (Auto) (0.24-0.82) K/uL Eos # (Auto) (0-0.50) K/uL Baso # (Auto) (0-0.2) K/uL Immature Gran # (Auto) (0.00-0.02) K/uL APTT (21.0-31.0) Seconds PTT Ratio Sodium (136-145) mmol/L Potassium 3.7 Chloride (98-107) mmol/L Carbon Dioxide (21-32) mmol/L Anion Gap (3-11) BUN (6-23) mg/dl Creatinine (0.6-1.2) mg/dl Est Cr Clr Drug Dosing ml/min Est GFR ( Amer) ml/min Est GFR (Non-Af Amer) ml/min BUN/Creatinine Ratio (10-20) Glucose (70-99(Fasting)) mg/dl Calcium (8.5-10.1) mg/dl Magnesium (1.7-2.4) mg/dl Total Bilirubin (0.2-1.0) mg/dl AST 20 ALT (7-52) U/L Alkaline Phosphatase (34-104) U/L Troponin I High Sens (0-14) pg/ml Total Protein (6.0-8.3) gm/dl Albumin (3.4-5.0) gm/dl Globulin (2.5-4.0) gm/dl Albumin/Globulin Ratio (0.9-2) TSH 1.072 (0.300-4.500) uIu/ml Administered Medications Discontinued Medications Sodium Chloride (Nss) 500 mls @ 999 mls/hr IV .Q31M KAREN Stop: 06/08/22 18:00 Last Infusion: 06/08/22 18:26 Dose: 0 mls/hr Documented by: [id number] Admin: 06/08/22 17:55 Dose: 999 mls/hr Documented by: [id number] Imaging Data Radiologist's Impression: Cervical Spine CT 06/08/22 17:24 CT cervical spine wo con CLINICAL HISTORY: Syncopal episode status post fall with neck pain COMPARISON STUDY: No previous studies for comparison. CT DOSE: TECHNIQUE: Standard CT of the Cervical Spine was performed without IV contrast. A dose lowering technique was utilized adhering to the principles of ALARA. FINDINGS: Bones: Bones are osteopenic. There is no evidence for an acute fracture or malalignment. The heights of the vertebral bodies are maintained. The vertebral bodies are in anatomic alignment. The odontoid is intact and the atlantoaxial articulation is within normal limits. Disc spaces: There is moderate disc space narrowing present from C4 through C7 with endplate cirrhosis and osteophyte formation. Apophyseal joints: Degenerative apophyseal joint disease is also present bilaterally. Soft tissues: The prevertebral soft tissues are within normal limits. IMPRESSION: 1. Osteopenia with no acute osseous pathology. 2. Degenerative disc and degenerative joint disease. ACT 112: Negative or not required by law. Electronically signed by: Fidel Owen M.D. 06/08/2022 6:53 PM Chest X-Ray 06/08/22 17:24 XR chest 1V portable CLINICAL HISTORY: fall. Pain. Evaluate cardiopulmonary status COMPARISON STUDY: 06/10/2021 TECHNIQUE: 1 view of the chest FINDINGS: Single frontal view of the chest demonstrates the cardiomediastinal silhouette to be within normal limits. The lungs are clear of alveolar opacities. There is no evidence for pleural effusion. There is no evidence for vascular congestion. There is no acute osseous pathology. IMPRESSION: 1. No acute cardiopulmonary disease. ACT 112: Negative or not required by law. Electronically signed by: Fidel Owen M.D. 06/08/2022 7:[address] 06/08/22 17:24 CT head/brain wo con CLINICAL HISTORY: syncope with fall and head pain COMPARISON STUDY: 02/09/2022 CT DOSE: 1005.49 mGy.cm TECHNIQUE: Standard CT of the Brain was performed without IV contrast. A dose lowering technique was utilized adhering to the principles of ALARA. FINDINGS: Extraaxial space: There is no evidence for subdural hematoma. There are no extra-axial fluid collections. Ventricles and cisterns: The ventricles are normal in size and configuration. There is no evidence for midline shift or mass effect. Parenchyma: There is no subarachnoid or intraparenchymal hemorrhage. There is no evidence for an acute infarct or cerebral edema. There is homogeneous attenuation of the brain parenchyma. There are no gross mass lesions. Osseous structures: There is no evidence for an acute fracture. The visualized paranasal sinuses are clear. The mastoid air cells are clear bilaterally. Soft tissues: There is no evidence for focal soft tissue swelling. IMPRESSION: 1. No acute intracerebral pathology. ACT 112: Negative or not required by law. Electronically signed by: Fidel Owen M.D. 06/08/2022 6:51 PM Discharge Plan Visit Data Chief Complaint: Syncope Stated Complaint: SYNCOPE ED Provider: Tip Holliday Discharge Problem: Syncope and collapse Forms Stand Alone Forms: [facility] Cozy Prescriptions Prescriptions: No Action dicyclomine 20 mg tablet 20 mg PO BID Qty: 180 RF: 3 diclofenac sodium [Voltaren] 1 % gel 2 g TOPICAL BID PRN (Reason: Pain) Qty: 100 RF: 5 alprazolam 0.5 mg tablet 0.5 mg PO BID PRN (Reason: anxiety) Qty: 30 RF: 0 gabapentin 600 mg tablet 1,200 mg PO TID Qty: 540 RF: 3 atenolol 100 mg tablet 100 mg PO HS Qty: 90 RF: 3 blood-glucose meter [Accu-Chek Kimberley Plus Meter] Misc See Rx Instructions .ROUTE .COMPLEX Qty: 1 RF: 0 omeprazole 20 mg capsule,delayed release(DR/EC) 20 mg PO HS Qty: 90 RF: 3 (DME) Accu-Chek Kimberley Plus test strp Strip See Rx Instructions .ROUTE .MEDSUPPLY Qty: 100 RF: 6 (DME) lancets [Accu-Chek Multiclix Lancet] Misc See Rx Instructions .ROUTE .MEDSUPPLY Qty: 100 RF: 6 peg 3350-electrolytes [Golytely] 236-22.74-6.74 -5.86 gram recon soln 240 ml PO Q10M Qty: 4000 RF: 0 fluoxetine 40 mg capsule 40 mg PO HS Qty: 90 RF: 3 hydrocodone-acetaminophen 7.5-325 mg tablet 1 tab PO BID PRN (Reason: pain) Qty: 30 RF: 0 atorvastatin 20 mg tablet 20 mg PO HS Qty: 90 RF: 3 cyclobenzaprine 10 mg tablet 10 mg PO TID PRN (Reason: muscle spasm) Qty: 60 RF: 0 losartan 100 mg tablet 100 mg PO HS Qty: 90 RF: 3 colchicine [Colcrys] 0.6 mg tablet See Rx Instructions PO BID Qty: 20 RF: 5 loperamide 2 mg Tablet 2 mg PO HS RF: 0 diphenhydramine HCl [Benadryl] 25 mg Capsule 25 mg PO HS RF: 0 naproxen sodium [Aleve] 220 mg Capsule 440 mg PO BID PRN (Reason: Pain) RF: 0 glipizide 2.5 mg tablet extended release 24 hr 2.5 mg PO QAM RF: 0 acetaminophen 500 mg Tablet 1,000 mg PO Q6H PRN (Reason: Pain) RF: 0 Referrals Referrals: Nellie Alvarez CRNP [Primary Care Provider] -
[2022-06-08] MEDS ORDERED: SODIUM CHLORIDE 0.9% 500 ML IV SCH (17:30)
[2022-06-08 18:06] LABS: Basophils # (auto) 0.04 K/uL (0-0.2); Basophils % (auto) 0.5 %; Eosinophils # (auto) 0.06 K/uL (0-0.50); Eosinophils % (auto) 0.7 %; Hematocrit (blood only) 40.3 % (34.1-44.9); Hemoglobin 13.7 g/dl (12.0-16.0); Immature Granulocytes # (auto) 0.03 K/uL (0.00-0.02); Immature Granulocytes % (auto) 0.4 %; Lymphocytes # (auto) 1.81 K/uL (1.2-3.4); Lymphocytes % (auto) 22.3 %; Mean Corpuscular Hemoglobin 29.8 pg (25.0-34.0); Mean Corpuscular Volume 87.8 fL (80.0-100.0); Mean Platelet Volume 10.1 fL (9.4-12.3); Monocytes # (auto) 0.84 K/uL (0.24-0.82); Monocytes % (auto) 10.3 %; Neutrophils # (auto) 5.34 K/uL (1.4-6.5); Neutrophils % (auto) 65.8 %; Platelet Count 223 K/uL (130-400); RDW Coefficient of Variation 12.4 % (11.5-14.5); RDW Standard Deviation 39.5 fL (36.4-46.3); Red Blood Count 4.59 M/uL (3.93-5.22); White Blood Count 8.12 K/ul (4.8-10.8)
[2022-06-08 18:25] LABS: Partial Thromboplastin Ratio 0.8; Partial Thromboplastin Time 22.6 Seconds (21.0-31.0)
[2022-06-08 18:35] LABS: Troponin I High Sensitivity 12.3 pg/ml (0-14)
[2022-06-08 18:42] LABS: Alanine Aminotransferase 16 U/L (7-52); Albumin Globulin Ratio 1.4 (0.9-2); Albumin Level 4.5 gm/dl (3.4-5.0); Alkaline Phosphatase 91 U/L (34-104); Anion Gap 11 (3-11); Bilirubin,Total 0.6 mg/dl (0.2-1.0); Blood Urea Nitrogen 28 mg/dl (6-23); Calcium 9.8 mg/dl (8.5-10.1); Carbon Dioxide 23 mmol/L (21-32); Chloride 103 mmol/L (98-107); Creatinine Clr Calc Pharmacy 43.6 ml/min; Est GFR (African American) 49.5 ml/min; Est GFR (Non-African American) 42.7 ml/min; Globulin 3.3 gm/dl (2.5-4.0); Glucose 138 mg/dl (70-99(Fasting)); Magnesium 1.8 mg/dl (1.7-2.4); Sodium 137 mmol/L (136-145); Total Protein 7.8 gm/dl (6.0-8.3)
--- NOTE | 2022-06-08 18:52 | CT Scan Report ---
CT head/brain wo con CLINICAL HISTORY: syncope with fall and head pain COMPARISON STUDY: 02/09/2022 CT DOSE: 1005.49 mGy.cm TECHNIQUE: Standard CT of the Brain was performed without IV contrast. A dose lowering technique was utilized adhering to the principles of ALARA. FINDINGS: Extraaxial space: There is no evidence for subdural hematoma. There are no extra-axial fluid collecti ons. Ventricles and cisterns: The ventricles are normal in size and configuration. There is no evidence fo r midline shift or mass effect. Parenchyma: There is no subarachnoid or intraparenchymal hemorrhage. There is no evidence for an acut e infarct or cerebral edema. There is homogeneous attenuation of the brain parenchyma. There are no g ross mass lesions. Osseous structures: There is no evidence for an acute fracture. The visualized paranasal sinuses are clear. The mastoid air cells are clear bilaterally. Soft tissues: There is no evidence for focal soft tissue swelling. IMPRESSION: 1. No acute intracerebral pathology. ACT 112: Negative or not required by law. Electronically signed by: Fidel Owen M.D. 06/08/2022 6:51 PM
--- NOTE | 2022-06-08 18:55 | CT Scan Report ---
CT cervical spine wo con CLINICAL HISTORY: Syncopal episode status post fall with neck pain COMPARISON STUDY: No previous studies for comparison. CT DOSE: TECHNIQUE: Standard CT of the Cervical Spine was performed without IV contrast. A dose lowering lenora hnique was utilized adhering to the principles of ALARA. FINDINGS: Bones: Bones are osteopenic. There is no evidence for an acute fracture or malalignment. The heights of the vertebral bodies are maintained. The vertebral bodies are in anatomic alignment. The odontoid is intact and the atlantoaxial articulation is within normal limits. Disc spaces: There is moderate disc space narrowing present from C4 through C7 with endplate cirrhosi s and osteophyte formation. Apophyseal joints: Degenerative apophyseal joint disease is also present bilaterally. Soft tissues: The prevertebral soft tissues are within normal limits. IMPRESSION: 1. Osteopenia with no acute osseous pathology. 2. Degenerative disc and degenerative joint disease. ACT 112: Negative or not required by law. Electronically signed by: Fidel Owen M.D. 06/08/2022 6:53 PM
--- NOTE | 2022-06-08 19:36 | XRay Report ---
XR chest 1V portable CLINICAL HISTORY: fall. Pain. Evaluate cardiopulmonary status COMPARISON STUDY: 06/10/2021 TECHNIQUE: 1 view of the chest FINDINGS: Single frontal view of the chest demonstrates the cardiomediastinal silhouette to be within normal li mits. The lungs are clear of alveolar opacities. There is no evidence for pleural effusion. There is no evidence for vascular congestion. There is no acute osseous pathology. IMPRESSION: 1. No acute cardiopulmonary disease. ACT 112: Negative or not required by law. Electronically signed by: Fidel Owen M.D. 06/08/2022 7:35 PM
[2022-06-08 19:52] LABS: Potassium 3.7 mmol/L (3.5-5.1)
--- NOTE | 2022-06-08 23:00 | History & Physical Report ---
Date of Service June 08, 2022 Assessment & Plan (1) Syncope and collapse: Plan: Isabela Bajwa is a 72yo female with PMHx significant for T2DM (A1c 6.2 on 04/01/2022), HTN, HLD, gout, chronic back/hip pain (on daily narcotics), GERD and depression/anxiety who presented to [facility] ED on 06/08 for syncope. Syncope Micturition syncope occurred yesterday, in the context of recent GI illness/diarrhea/decreased PO intake in addition to chronic anti-hypertensive and sedating home medication regimen. Do not suspect cardiogenic etiology. - admit for telemetry monitoring overnight - orthostatic VS ordered - pending - hold home Xanax, Flexeril, Benadryl and Gabapentin - recommend discussion about condensing home medication regimen as much as possible to avoid further syncopal episodes - per PCP/primary team Diarrhea 5-7 episodes of diarrhea with mucus for last 3-4 days - suspect viral gastroenteritis. Likely contributed to syncope as stated above. - stool PCR panel ordered - pending - s/p NSS 500cc bolus - continue with LR @125cc/hr x2L - trend BMP/Mg in AM Acute on Chronic Lower Back Pain; Ambulatory Dysfunction Exacerbation of chronic back pain after recent fall. Thankfully CT head and CT c-spine/l-spine were without acute abnormalities. Patient has had several mechanical falls over last several months. - graduated PRN pain regimen: Tylenol 650mg PO Q8H; Hydrocodone-Acetaminophen 7-325mg PO BID - continue home Naproxen - hold home Flexeril as stated above - PT/OT consulted HTN: continue home Atenolol and Losartan HLD: continue home Atorvastatin T2DM: A1c 6.2 on 04/01/2022. SSI while hospitalized Peripheral Neuropathy: hold home Gabapentin as stated above IBS: hold home Dicyclomine and Loperamide, in context of current diarrhea GERD: Protonix per hospital formulary Depression/Anxiety: continue home Fluoxetine. hold home Xanax as stated above. FEN/GI: DM2 diet; LR @125cc/hr (x2L) DVT Prophylaxis: Heparin SQ Code Status: DNR/DNI - discussed with patient Disposition: med/tele (2) Diabetes mellitus, type 2: (3) Lumbar radiculopathy: (4) Back pain: (5) Right hip pain: (6) Osteoarthritis: (7) Hypertension: (8) Hyperlipidemia: (9) Acid reflux: (10) Peripheral neuropathy: (11) Gout: (12) Depression: History of Present Illness Chief Complaint: syncope Primary Care Provider: AMI Julien Isabela Bajwa is a 72yo female with PMHx significant for T2DM (A1c 6.2 on 04/01/2022), HTN, HLD, gout, chronic back/hip pain (on daily narcotics), GERD and depression/anxiety who presented to [facility] ED on 06/08 for syncope. Patient was at her doctor's office earlier in the day, got up to go to the bathroom, remembers attempting to urinate, and the next thing she remembers she woke up on the bathroom floor. Patient's sister was at her doctor's appointment with her, found her in the bathroom and called EMS. Of note, the patient reports having mechanical falls several times over the last several months although she denies syncope before the current episode. Patient reported occipital headache and thinks she hit the back of her head when she fell yesterday. Patient denies chest pain or palpitations. She denies post-ictal phase - quick return to baseline after she wakes up. She denies any recent changes in medications. Of note the patient was at the doctor because she has had persistent non-bloody diarrhea with mucus, 5-7 episodes per day, x3-4 days, without N/V or abdominal pain. Patient denies fever/chills, dysuria, or rash. Denies recent antibiotics or changes in medications. In the ED was hypertensive in 170s/90s-110s. Otherwise stable on room air and afebrile. Was placed on telemetry monitoring, and EKG done, which showed NSR 85bpm without abnormal intervals or ST/T changes. Labs significant for BUN 28/Cr 1.27 (baseline Cr 1-1.1). CBC/CMP/Mg/TSH otherwise WNL. Head/C-spine/L-spine CT with evidence of chronic degenerative spine/disc disease but no acute pathology. CXR unremarkable. Patient was given NSS 500cc bolus and Tylenol 1g PO x1 for pain. Allergies Allergy/AdvReac Type Severity Reaction Status Date / Time pneumococcal vaccine Allergy Severe RED ARM, Verified 06/08/22 23:37 HIVES, >TEMP tetanus toxoid, adsorbed Allergy Severe ARM Verified 06/08/22 23:37 SWELLING belladonna alkaloids Allergy Intermediate Dizziness Verified 06/08/22 23:37 Home Medications Medication Instructions Recorded Confirmed Type diphenhydramine HCl 25 mg capsule 25 mg PO HS 10/26/18 06/08/22 History (Benadryl) loperamide 2 mg tablet 2 mg PO HS 10/26/18 06/08/22 History naproxen sodium 220 mg capsule 440 mg PO BID PRN Pain 10/26/18 06/08/22 History (Aleve) dicyclomine 20 mg tablet 20 mg PO BID #180 tabs 07/02/19 06/08/22 Rx diclofenac sodium 1 % topical gel 2 g topical BID PRN Pain #100 grams 01/28/20 06/08/22 Rx (Voltaren) colchicine 0.6 mg tablet (Colcrys) See Rx Instructions PO BID #20 tabs 02/19/20 06/08/22 Rx alprazolam 0.5 mg tablet 0.5 mg PO BID PRN anxiety #30 tabs 04/01/20 06/08/22 Rx cyclobenzaprine 10 mg tablet 10 mg PO TID PRN muscle spasm #60 02/06/21 06/08/22 Rx tabs atenolol 100 mg tablet 100 mg PO HS #90 tabs 05/01/21 06/08/22 Rx gabapentin 600 mg tablet 1,200 mg PO TID #540 tabs 05/01/21 06/08/22 Rx omeprazole 20 mg capsule,delayed 20 mg PO HS #90 caps 08/18/21 06/08/22 Rx release blood sugar diagnostic (Accu-Chek #100 ea 11/03/21 06/08/22 Rx Kimberley Plus test strp) lancets (Accu-Chek Multiclix #100 ea 11/03/21 06/08/22 Rx Lancet) acetaminophen 500 mg tablet 1,000 mg PO Q6H PRN Pain 11/19/21 06/08/22 History glipizide 2.5 mg tablet, extended 2.5 mg PO QAM 11/19/21 06/08/22 History release 24 hr losartan 100 mg tablet 100 mg PO HS #90 tabs 04/01/22 06/08/22 Rx fluoxetine 40 mg capsule 40 mg PO HS #90 caps 04/29/22 06/08/22 Rx hydrocodone 7.5 mg-acetaminophen 1 tab PO BID PRN pain #30 tabs 05/27/22 06/08/22 Rx 325 mg tablet atorvastatin 20 mg tablet 20 mg PO HS #90 tabs 06/01/22 06/08/22 Rx Past Med/Surg History Medical History (Updated 06/08/22 @ 22:45 by Tip Holliday, DO) Acid reflux UNDER CONTROL Chronic back pain Depression Diabetes mellitus type 2, uncontrolled (11/2020) Diabetes mellitus, type 2 Hyperlipidemia Hypertension Osteoarthritis Peripheral neuropathy FEET PVCs (premature ventricular contractions) HX-DX'D 1986-ON [place]-F/U DR BRADFORD Stomach ulcer HX Surgical History H/O knee surgery RIGHT ARTHROSCOPY History of 2 sections History of appendectomy History of cataract surgery left History of cholecystectomy History of esophagogastroduodenoscopy (EGD) History of foot surgery R/L HEEL SPURS History of tonsillectomy and adenoidectomy Hx of hand surgery R/L TRIGGER FINGERS X 3-4 S/P trigger finger release Family History Mother Myocardial infarction Pulmonary emphysema Hypertension Father Diabetes Myocardial infarction Hypertension Brother Hypertension Other No family history of adverse response to anesthesia Social History (Updated 11/19/21 @ 09:16 by Lay Demarco RN) Smoking Status: Never smoker Second Hand Exposure: No; Hx Alcohol Use: No Hx Substance Use: No Preferred Language: Hebrew Communication Ability: Effective 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 NAD. Cooperative. Obese. HEENT: Atraumatic, normocephalic. Pulm: CTAB A&P. -wheezes, -rales, -rhonchi. Symmetrical chest rise. No increase work of breathing. No respiratory distress. Cardiac: RRR, -mrg. Radial pulses intact and symmetrical. Abdominal: soft, non-tender, non-distended, BS x 4 Skin: warm, dry, no rash Results & Data Results & Data ([facility]) Vital Signs (Past 12 Hours) Vital Signs Temp Pulse Pulse Resp BP BP Pulse Ox 06/08/22 22:03 74 17 177/78 H 97 06/08/22 20:30 71 18 173/101 H 97 06/08/22 17:24 81 96 06/08/22 17:21 36.5 C 84 26 H 171/110 H 92 06/08/22 17:02 94 Code Status & VTE Plan Code Status DNR/DNI - discussed with patient Supervising Physician Co-Signing Physician Notes Attending addendum: I have physically seen this patient, have supervised the medical residents activities, and agree with the H&P unless as otherwise noted. Assessment and Plan: Syncope and collapse- Micturition syncope, dehydration secondary to recent diarrhea and decreased oral intake The patient will be admitted to telemetry for serial cardiac enzymes, serial EKG's, cardiac rhythm monitoring and a 2-D echocardiogram with Dopplers. Orthostatic vital signs Hold potentially sedating medications: Xanax, Flexeril, Benadryl and gabapentin Diarrhea/secondary dehydration- Follow results of stool PCR Received 500 cc NSS bolus from the ED LR at 125 mils per hour x2 L Follow serial BMP and magnesium levels Hypertension- Continue atenolol and losartan Hyperlipidemia- Continue atorvastatin Diabetes mellitus- Hold glipizide Place on Accu-Cheks before meals and at bedtime with NovoLog coverage per scale GERD- Change omeprazole to pantoprazole per formulary Remaining orders and notations as noted Resident Activity Tracking Resident Involvement: Resident Care Provided Care Provided: Adult Hospital Medicine (1) Back pain Back pain laterality: midline Back pain location: back pain in unspecified location Chronicity: acute Qualified Code(s): M54.9 - Dorsalgia, unspecified
[2022-06-08] MEDS ORDERED: ACETAMINOPHEN 500 MG TAB PO STA (23:18)
[2022-06-09] MEDS ORDERED: ACETAMINOPHEN 325 MG TAB PO PRN (00:43)
[2022-06-09] MEDS ORDERED: GLUCOSE 10 TAB/TUBE PO PRN (00:43)
[2022-06-09] MEDS ORDERED: GLUCAGON FOR INJ 1 MG VIAL SQ PRN (00:43)
[2022-06-09] MEDS ORDERED: NAPROXEN 375 MG TAB PO PRN (00:43)
[2022-06-09] MEDS ORDERED: CARBOHYDRATES FOR HYPOGLYCEMIA PO PRN (00:43)
[2022-06-09] MEDS ORDERED: DICLOFENAC SOD 1% GEL 100 GM TUBE EXT PRN (00:43)
[2022-06-09] MEDS ORDERED: DEXTROSE 50% 50 ML SYRINGE IV PRN (00:43)
[2022-06-09] MEDS ORDERED: GLUCOSE 40% GEL 15 GM TUBE PO PRN (00:43)
[2022-06-09] MEDS ORDERED: LABETALOL HCL IV 5 MG/ML 20ML IV STA ×2 (01:26→22:40)
[2022-06-09] MEDS: HEPARIN SOD 5,000 UNIT/0.5 ML VIAL SQ SCH ×3 (05:20→22:08)
[2022-06-09] MEDS: LACTATED RINGER'S 1,000 ML IV SCH ×2 (05:23→15:45)
[2022-06-09 05:39] LABS: Basophils # (auto) 0.04 K/uL (0-0.2); Basophils % (auto) 0.5 %; Eosinophils # (auto) 0.09 K/uL (0-0.50); Hematocrit (blood only) 36.4 % (34.1-44.9); Immature Granulocytes # (auto) 0.04 K/uL (0.00-0.02); Immature Granulocytes % (auto) 0.5 %; Lymphocytes # (auto) 2.13 K/uL (1.2-3.4); Lymphocytes % (auto) 24.4 %; Mean Corpuscular Hemoglobin 29.6 pg (25.0-34.0); Mean Corpuscular Volume 89.7 fL (80.0-100.0); Mean Platelet Volume 9.7 fL (9.4-12.3); Monocytes # (auto) 0.98 K/uL (0.24-0.82); Monocytes % (auto) 11.2 %; Neutrophils # (auto) 5.44 K/uL (1.4-6.5); Neutrophils % (auto) 62.4 %; Platelet Count 185 K/uL (130-400); RDW Coefficient of Variation 12.4 % (11.5-14.5); RDW Standard Deviation 40.7 fL (36.4-46.3); Red Blood Count 4.06 M/uL (3.93-5.22); White Blood Count 8.72 K/ul (4.8-10.8)
--- NOTE | 2022-06-09 05:50 | Billing Data ---
Date of Service June 09, 2022 Coding Level of Care Code INT OBSERVATION CARE 72M LVL 3
[2022-06-09 06:07] LABS: BUN Creatinine Ratio 23.1 (10-20); Calcium 9.4 mg/dl (8.5-10.1); Creatinine Clr Calc Pharmacy 41.3 ml/min; Est GFR (African American) 46.4 ml/min; Magnesium 1.7 mg/dl (1.7-2.4); Potassium 3.2 mmol/L (3.5-5.1)
[2022-06-09] MEDS ORDERED: LABETALOL HCL IV 5 MG/ML 20ML IV ONE ×2 (07:30→22:36)
[2022-06-09] MEDS: INSULIN ASPART PER UNIT SC SCH ×4 (07:56→20:39)
[2022-06-09] MEDS: POTASSIUM CHLORIDE CRTAB 20 MEQ TABCR PO STA ×2 (07:56→08:35)
--- NOTE | 2022-06-09 08:03 | CT Scan Report ---
CT SCAN OF THE LUMBAR SPINE WITHOUT IV CONTRAST CLINICAL HISTORY: Fall. Low back pain. COMPARISON STUDY: CT scan of the lumbar spine dated 02/09/2022. TECHNIQUE: CT scan of the lumbar spine is performed from the lower thoracic spine to the sacrum. Imag es are reviewed in the axial, sagittal, and coronal planes. IV contrast was not administered for this examination. A dose lowering technique was utilized adhering to the principles of ALARA. CT DOSE: 692.47 mGy.cm FINDINGS: The skeletal structures are osteopenic. There is no evidence of acute fracture or malalignm ent involving the lumbar spine. Vertebral body height and alignment are maintained. Anterior and late ral marginal osteophytes are seen throughout. The transverse and spinous processes appear intact. The re is no spondylolysis. Facet arthropathy is noted in the lower lumbar region. No lytic or blastic le pineda is seen. Minimal lumbar levocurvature may be positional. There is mild multilevel disc space art rowing, greatest at L3-L4. A tiny posterior disc osteophyte complex is seen at this level. Posterior disc bulge is also noted at L4-L5. The visualized sacrum and bony pelvis appear intact. There is mild fatty atrophy of the paraspinous musculature. Cholecystectomy clips are noted. There is moderate ath erosclerotic calcification of the abdominal aorta which is normal in caliber. No retroperitoneal lymp hadenopathy is seen. IMPRESSION: 1. No acute bony abnormality is seen involving the lumbar spine. 2. Osteopenia and mild spondylotic change as above. ACT 112: Negative or not required by law. Dictated: 06/09/2022 7:28 AM Transcribed: 06/09/2022 7:54 AM Carlotta [id number] CARMEN_Faith Electronically signed by: Eamon Bryan M.D. 06/09/2022 8:01 AM
[2022-06-09] MEDS: POTASSIUM CHLORIDE / WTR 10 MEQ/100 ML PLCT IV SCH ×4 (10:10→13:21)
--- NOTE | 2022-06-09 11:12 | Electrocardiogram Report ---
Test Reason : Blood Pressure : / mmHG Vent. Rate : 085 BPM Atrial Rate : 085 BPM P-R Int : 152 ms QRS Dur : 076 ms QT Int : 372 ms P-R-T Axes : 025 -09 056 degrees QTc Int : 442 ms Poor data quality, interpretation may be adversely affected Normal sinus rhythm Voltage criteria for left ventricular hypertrophy Nonspecific T wave abnormality Abnormal ECG When compared with ECG of 10-JUN-2021 16:51, Premature ventricular complexes are no longer Present Nonspecific T wave abnormality now evident in Anterolateral leads Confirmed by Rhett Lane ([id number]) on 06/09/2022 11:12:01 AM Referred By: REFERRED SELF Confirmed By:Geo Lane
[2022-06-09] MEDS: HYDROCODONE/ACETAMINOPHEN 7.5/325MG TAB PO PRN (12:16)
--- NOTE | 2022-06-09 12:16 | Hospitalist Progress Note ---
Date of Service June 09, 2022 Assessment & Plan (1) Syncope and collapse: Plan: Isabela Bajwa is a 72yo female with PMHx significant for T2DM (A1c 6.2 on 04/01/2022), HTN, HLD, gout, chronic back/hip pain (on daily narcotics), GERD and depression/anxiety who presented to [facility] ED on 06/08 for syncope. Syncope Micturition syncope occurred in the context of recent GI illness/diarrhea/decreased PO intake in addition to chronic anti-hypertensive an d sedating home medication regimen. Do not suspect cardiogenic etiology. - admit for telemetry monitoring overnight -Positive orthostatic changes - hold home Xanax, Flexeril, Benadryl and Gabapentin - recommend discussion about condensing home medication regimen as much as possible to avoid further syncopal episodes (2) Diarrhea: Plan: Diarrhea 5-7 episodes of diarrhea with mucus for last 3-4 days - suspect viral gastroenteritis. Likely contributed to syncope as stated above. - stool PCR panel ordered - pending - s/p NSS 500cc bolus - continue with LR @125cc/hr x2L - trend BMP/Mg in AM (3) Diabetes mellitus, type 2: Plan: T2DM: A1c 6.2 on 04/01/2022. SSI while hospitalized (4) Back pain: Plan: Acute on Chronic Lower Back Pain; Ambulatory Dysfunction Exacerbation of chronic back pain after recent fall. Thankfully CT head and CT c-spine/l-spine were without acute abnormalities. Patient has had several mechanical falls over last several months. - graduated PRN pain regimen: Tylenol 650mg PO Q8H; Hydrocodone-Acetaminophen 7- 325mg PO BID - continue home Naproxen - hold home Flexeril as stated above - PT/OT consulted (5) Right hip pain: (6) Osteoarthritis: (7) Lumbar radiculopathy: (8) Hypertension: Plan: HTN: continue home Atenolol and Losartan (9) Hyperlipidemia: (10) Acid reflux: (11) Peripheral neuropathy: (12) Gout: (13) Depression: Plan FEN/GI: DM2 diet; LR @125cc/hr (x2L) DVT Prophylaxis: Heparin SQ Code Status: DNR/DNI - discussed with patient Disposition: med/tele Hopefully discharge in the next 24 hours Admission and Anticipated Discharge Date Admission Date: June 08, 2022 Subjective Patient seen and examined today, lying quietly in bed Review of Systems Review of Systems: All systems reviewed are negative, apart from the ones contained in the history. Physical Exam Physical Exam: The patient is awake, alert and oriented 3, well developed and well nourished, normocephalic and atraumatic, lying in bed and in no acute distress. HEENT--PERRL, EOMI, mucous membranes and oropharynx mildly dry Neck--supple. No JVD. No bruits. Thyroid normal, trachea midline, no adenopathy. Heart--normal S1 and S2. No murmurs, rubs or gallops. Lungs--clear bilaterally, no respiratory distress, no accessory muscle use. Abdomen--normal bowel sounds and soft. Mild epigastric and left sided abdominal pain Extremities--no cyanosis or clubbing. No edema. Dermatologic--normal skin turgor, normal color, no abnormal lymph nodes, no rash. Neurologic--cranial nerves II through XII grossly intact. Rheumatologic--normal range of motion. Psychiatric--normal affect. Results & Data Results & Data ([facility]) Vital Signs (Past 12 Hours) Vital Signs Temp Pulse Resp BP Pulse Ox Pulse Ox O2 Del Method 06/09/22 08:00 56 L 06/09/22 08:03 98.1 F 06/09/22 04:00 67 06/09/22 05:00 158/79 H 06/09/22 04:30 76 20 147/51 H 92 Room Air 06/09/22 04:02 71 14 96 06/09/22 04:01 151/115 H 06/09/22 03:58 97.9 F 65 18 92 06/09/22 03:30 64 19 93 06/09/22 03:19 187/87 H 06/09/22 03:18 67 15 06/09/22 03:16 63 10 L 92 Room Air 06/09/22 03:16 183/90 H 06/09/22 03:01 65 16 92 06/09/22 03:01 170/84 H 06/09/22 03:00 66 21 91 06/09/22 02:48 68 17 90 06/09/22 01:30 71 18 92 06/09/22 01:30 227/96 H 06/09/22 01:16 199/92 H 06/09/22 01:16 98.1 F 66 15 93 Room Air 06/09/22 01:15 68 12 199/92 H 94 Room Air 06/09/22 01:01 64 21 06/09/22 01:01 224/80 H 06/09/22 01:00 72 15 06/09/22 00:56 208/103 H 06/09/22 00:56 69 18 06/09/22 00:53 72 18 06/09/22 00:53 97.7 F 230/94 H 99 Room Air 06/09/22 00:47 100 06/09/22 00:47 207/103 H 06/09/22 00:46 98 06/09/22 00:43 94 O2 Del Method 06/09/22 08:00 06/09/22 08:03 06/09/22 04:00 06/09/22 05:00 06/09/22 04:30 06/09/22 04:02 06/09/22 04:01 06/09/22 03:58 06/09/22 03:30 06/09/22 03:19 06/09/22 03:18 06/09/22 03:16 06/09/22 03:16 06/09/22 03:01 06/09/22 03:01 06/09/22 03:00 06/09/22 02:48 06/09/22 01:30 06/09/22 01:30 06/09/22 01:16 06/09/22 01:16 06/09/22 01:15 06/09/22 01:01 06/09/22 01:01 06/09/22 01:00 06/09/22 00:56 06/09/22 00:56 06/09/22 00:53 06/09/22 00:53 06/09/22 00:47 06/09/22 00:47 06/09/22 00:46 06/09/22 00:43 Room Air PG Care Time/CCT Total # of Minutes Spent Total Time Spent with Patient: Total time spent is greater than 50% in coordination of care (as documented) at patient's floor/unit and/or counseling patient: Coding Level of Care Code 74802 Subseq Hosp Care Lvl 2 Diagnoses Syncope and collapse R55 Diarrhea R19.7 Diabetes mellitus, type 2 E11.9 Back pain M54.9 Back pain laterality: midline Back pain location: back pain in unspecified location Chronicity: acute Right hip pain M25.551 Osteoarthritis M19.90 Lumbar radiculopathy M54.16 Hypertension I10 Hyperlipidemia E78.5 Acid reflux K21.9 Peripheral neuropathy G62.9 Gout M10.9 Depression F32.9 Time Spent (min) 35 (1) Back pain Back pain laterality: midline Back pain location: back pain in unspecified location Chronicity: acute Qualified Code(s): M54.9 - Dorsalgia, unspecified
[2022-06-09] MEDS: hydrALAZINE HCL 20 MG/ML VIAL IV PRN ×2 (13:21→19:46)
[2022-06-09] MEDS: ATORVASTATIN 20 MG TAB PO SCH (20:35)
[2022-06-09] MEDS: LOSARTAN POTASSIUM 50 MG TAB PO SCH (20:35)
[2022-06-09] MEDS: FLUoxetine HCL 20 MG CAP PO SCH (20:35)
[2022-06-09] MEDS: ATENOLOL 50 MG TABLET PO SCH (20:36)
[2022-06-09] MEDS: PANTOprazole 40 MG TAB PO SCH (20:36)
[2022-06-10] MEDS: hydrALAZINE HCL 20 MG/ML VIAL IV PRN (04:13)
[2022-06-10] MEDS: HEPARIN SOD 5,000 UNIT/0.5 ML VIAL SQ SCH ×3 (05:47→21:36)
[2022-06-10] MEDS: HYDROCODONE/ACETAMINOPHEN 7.5/325MG TAB PO PRN ×2 (06:02→18:45)
[2022-06-10] MEDS: INSULIN ASPART PER UNIT SC SCH ×4 (08:15→21:39)
--- NOTE | 2022-06-10 11:32 | Hospitalist Progress Note ---
Date of Service June 10, 2022 Assessment & Plan (1) Syncope and collapse: Plan: Isabela Bajwa is a 72yo female with PMHx significant for T2DM (A1c 6.2 on 04/01/2022), HTN, HLD, gout, chronic back/hip pain (on daily narcotics), GERD and depression/anxiety who presented to [facility] ED on 06/08 for syncope. Syncope Micturition syncope occurred in the context of recent GI illness/diarrhea/decreased PO intake in addition to chronic anti-hypertensive an d sedating home medication regimen. Do not suspect cardiogenic etiology. - admit for telemetry monitoring overnight -Positive orthostatic changes - hold home Xanax, Flexeril, Benadryl and Gabapentin - recommend discussion about condensing home medication regimen as much as possible to avoid further syncopal episodes (2) Diarrhea: Plan: Diarrhea Had only one episode yesterday, none so far today (3) Diabetes mellitus, type 2: Plan: T2DM: A1c 6.2 on 04/01/2022. SSI while hospitalized (4) Back pain: Plan: Acute on Chronic Lower Back Pain; Ambulatory Dysfunction Exacerbation of chronic back pain after recent fall. Thankfully CT head and CT c-spine/l-spine were without acute abnormalities. Patient has had several mechanical falls over last several months. - graduated PRN pain regimen: Tylenol 650mg PO Q8H; Hydrocodone-Acetaminophen 7- 325mg PO BID - continue home Naproxen - hold home Flexeril as stated above - PT/OT consulted (5) Right ankle pain: Plan: will obtain an X ray (6) Right hip pain: (7) Osteoarthritis: (8) Lumbar radiculopathy: (9) Hypertension: Plan: HTN: continue home Atenolol and Losartan (10) Hyperlipidemia: (11) Acid reflux: (12) Peripheral neuropathy: (13) Gout: (14) Depression: Plan FEN/GI: DM2 diet; LR @125cc/hr (x2L) DVT Prophylaxis: Heparin SQ Code Status: DNR/DNI - discussed with patient Disposition: med/tele Hopefully discharge in the next 24 hours Admission and Anticipated Discharge Date Admission Date: June 08, 2022 Subjective Patient seen and examined today, lying quietly in bed, complains of right ankle pain Review of Systems Review of Systems: All systems reviewed are negative, apart from the ones contained in the history. Physical Exam Physical Exam: The patient is awake, alert and oriented 3, well developed and well nourished, normocephalic and atraumatic, lying in bed and in no acute distress. HEENT--PERRL, EOMI, mucous membranes and oropharynx mildly dry Neck--supple. No JVD. No bruits. Thyroid normal, trachea midline, no adenopathy. Heart--normal S1 and S2. No murmurs, rubs or gallops. Lungs--clear bilaterally, no respiratory distress, no accessory muscle use. Abdomen--normal bowel sounds and soft. Mild epigastric and left sided abdominal pain Extremities--no cyanosis or clubbing. No edema. Dermatologic--normal skin turgor, normal color, no abnormal lymph nodes, no rash. Neurologic--cranial nerves II through XII grossly intact. Rheumatologic--normal range of motion. Psychiatric--normal affect. Results & Data Results & Data ([facility]) Vital Signs (Past 12 Hours) Vital Signs Temp Pulse Pulse Resp BP Pulse Ox O2 Del Method 06/10/22 05:20 179/89 H 06/10/22 04:00 98.2 F 74 20 210/89 H 94 Room Air 06/09/22 23:53 72 PG Care Time/CCT Total # of Minutes Spent Total Time Spent with Patient: Total time spent is greater than 50% in coordination of care (as documented) at patient's floor/unit and/or counseling patient: Coding Level of Care Code 85511 Subseq Hosp Care Lvl 2 Diagnoses Syncope and collapse R55 Diarrhea R19.7 Diabetes mellitus, type 2 E11.9 Back pain M54.9 Back pain laterality: midline Back pain location: back pain in unspecified location Chronicity: acute Right ankle pain M25.571 Right hip pain M25.551 Osteoarthritis M19.90 Lumbar radiculopathy M54.16 Hypertension I10 Hyperlipidemia E78.5 Acid reflux K21.9 Peripheral neuropathy G62.9 Gout M10.9 Depression F32.9 Time Spent (min) 35 (1) Back pain Back pain laterality: midline Back pain location: back pain in unspecified location Chronicity: acute Qualified Code(s): M54.9 - Dorsalgia, unspecified
--- NOTE | 2022-06-10 11:56 | XRay Report ---
XR ankle RT min 3V routine CLINICAL HISTORY: Right ankle pain and swelling. COMPARISON STUDY: None. FINDINGS: No fracture or dislocation within the right ankle. Mild osteoarthritis of the tibiotalar milind int. The bones are slightly osteopenic. There is mild soft tissue swelling within the right ankle. Sm all plantar and posterior calcaneal spurs. IMPRESSION: Mild soft tissue swelling within the right ankle. No fractures. ACT 112: Negative or not required by law. Electronically signed by: Ten Pantoja M.D. 06/10/2022 11:54 AM
[2022-06-10] MEDS ORDERED: cloNIDine HCL 0.1 MG TAB PO ONE (15:20)
[2022-06-10] MEDS: ATENOLOL 50 MG TABLET PO SCH (21:41)
[2022-06-10] MEDS: LOSARTAN POTASSIUM 50 MG TAB PO SCH (21:41)
[2022-06-10] MEDS: ATORVASTATIN 20 MG TAB PO SCH (21:41)
[2022-06-10] MEDS: FLUoxetine HCL 20 MG CAP PO SCH (21:41)
[2022-06-11] MEDS: PANTOprazole 40 MG TAB PO SCH (00:58)
[2022-06-11] MEDS: HEPARIN SOD 5,000 UNIT/0.5 ML VIAL SQ SCH (06:03)
[2022-06-11 07:23] LABS: Creatinine Clr Calc Pharmacy 53.4 ml/min; Est GFR (Non-African American) 54.4 ml/min; Potassium 3.9 mmol/L (3.5-5.1)
[2022-06-11] MEDS: INSULIN ASPART PER UNIT SC SCH ×2 (08:09→12:32)
--- NOTE | 2022-06-11 12:14 | Discharge Summary ---
Date of Service June 11, 2022 Admission HPI Per Admitting Provider Isabela Bajwa is a 72yo female with PMHx significant for T2DM (A1c 6.2 on 04/01/2022), HTN, HLD, gout, chronic back/hip pain (on daily narcotics), GERD and depression/anxiety who presented to [facility] ED on 06/08 for syncope. Patient was at her doctor's office earlier in the day, got up to go to the bathroom, remembers attempting to urinate, and the next thing she remembers she woke up on the bathroom floor. Patient's sister was at her doctor's appointment with her, found her in the bathroom and called EMS. Of note, the patient reports having mechanical falls several times over the last several months although she denies syncope before the current episode. Patient reported occipital headache and thinks she hit the back of her head when she fell yesterday. Patient denies chest pain or palpitations. She denies post-ictal phase - quick return to baseline after she wakes up. She denies any recent changes in medications. Of note the patient was at the doctor because she has had persistent non-bloody diarrhea with mucus, 5-7 episodes per day, x3-4 days, without N/V or abdominal pain. Patient denies fever/chills, dysuria, or rash. Denies recent antibiotics or changes in medications. In the ED was hypertensive in 170s/90s-110s. Otherwise stable on room air and afebrile. Was placed on telemetry monitoring, and EKG done, which showed NSR 85bpm without abnormal intervals or ST/T changes. Labs significant for BUN 28/Cr 1.27 (baseline Cr 1-1.1). CBC/CMP/Mg/TSH otherwise WNL. Head/C-spine/L-spine CT with evidence of chronic degenerative spine/disc disease but no acute pathology. CXR unremarkable. Patient was given NSS 500cc bolus and Tylenol 1g PO x1 for pain. Principal Diagnosis Micturition syncope Discharge Exam The patient is awake, alert and oriented 3, well developed and well nourished, normocephalic and atraumatic, lying in bed and in no acute distress. HEENT--PERRL, EOMI, mucous membranes and oropharynx mildly dry Neck--supple. No JVD. No bruits. Thyroid normal, trachea midline, no adenopathy. Heart--normal S1 and S2. No murmurs, rubs or gallops. Lungs--clear bilaterally, no respiratory distress, no accessory muscle use. Abdomen--normal bowel sounds and soft. Mild epigastric and left sided abdominal pain Extremities--no cyanosis or clubbing. No edema. Dermatologic--normal skin turgor, normal color, no abnormal lymph nodes, no rash. Neurologic--cranial nerves II through XII grossly intact. Rheumatologic--normal range of motion. Psychiatric--normal affect. Discharge Data Allergies Allergy/AdvReac Type Severity Reaction Status Date / Time pneumococcal vaccine Allergy Severe RED ARM, Verified 06/08/22 23:37 HIVES, >TEMP tetanus toxoid, adsorbed Allergy Severe ARM Verified 06/08/22 23:37 SWELLING belladonna alkaloids Allergy Intermediate Dizziness Verified 06/08/22 23:37 Consultations 06/08/22 22:46 ED Decision to Admit Stat Ordered Studies 06/08/22 17:24 CT cervical spine wo con Stat CT head/brain wo con Stat 06/08/22 19:06 CT lumbar spine wo con Stat Hospital Course (1) Syncope and collapse: Isabela Bajwa is a 72yo female with PMHx significant for T2DM (A1c 6.2 on 04/01/2022), HTN, HLD, gout, chronic back/hip pain (on daily narcotics), GERD and depression/anxiety who presented to [facility] ED on 06/08 for syncope. Syncope Micturition syncope occurred in the context of recent GI illness/diarrhea/decreased PO intake in addition to chronic anti-hypertensive and sedating home medication regimen. Do not suspect cardiogenic etiology. - admit for telemetry monitoring overnight -Positive orthostatic changes - hold home Xanax, Flexeril, Benadryl and Gabapentin - recommend discussion about condensing home medication regimen as much as possible to avoid further syncopal episodes (2) Diarrhea: Diarrhea Had only one episode yesterday, none so far today (3) Diabetes mellitus, type 2: T2DM: A1c 6.2 on 04/01/2022. SSI while hospitalized (4) Back pain: Acute on Chronic Lower Back Pain; Ambulatory Dysfunction Exacerbation of chronic back pain after recent fall. Thankfully CT head and CT c-spine/l-spine were without acute abnormalities. Patient has had several mechanical falls over last several months. - graduated PRN pain regimen: Tylenol 650mg PO Q8H; Hydrocodone-Acetaminophen 7- 325mg PO BID - continue home Naproxen - hold home Flexeril as stated above - PT/OT consulted (5) Right ankle pain: will obtain an X ray (6) Right hip pain: (7) Osteoarthritis: (8) Lumbar radiculopathy: (9) Hypertension: HTN: continue home Atenolol and Losartan (10) Hyperlipidemia: (11) Acid reflux: (12) Peripheral neuropathy: (13) Gout: (14) Depression: Plan FEN/GI: DM2 diet; LR @125cc/hr (x2L) DVT Prophylaxis: Heparin SQ Code Status: DNR/DNI - discussed with patient Disposition: med/tele Hopefully discharge in the next 24 hours Total Time Total Time Spent Total Time Spent (In Minutes): 35 Discharge Plan Discharge Items Patient Disposition: Home - Self-Care Reason For Visit: SYNCOPE Discharge Diagnosis: micturition syncope Activity: Resume your previous activity Non-emergency contact: Primary Care Provider Call non-emergency contact if: you have any medication questions Follow-up/Referrals: Nellie Alvarez CRNP [Primary Care Provider] - 06/14/22 3:00 pm Diet: Regular Addtl Attending Provider Instructions: please make appointment to follow up with your PCP Pending Studies at Discharge: No Stand-Alone Forms: My [facility] [employer], Smoking Cessation Medications and DC Order Prescriptions: Continued diclofenac sodium [Voltaren] 1 % gel 2 g TOPICAL BID PRN (Reason: Pain) Qty: 100 5RF Rx Instructions: Apply to affected area(s) twice daily alprazolam 0.5 mg tablet 0.5 mg PO BID PRN (Reason: anxiety) Qty: 30 0RF gabapentin 600 mg tablet 1,200 mg PO TID Qty: 540 3RF atenolol 100 mg tablet 100 mg PO HS Qty: 90 3RF omeprazole 20 mg capsule,delayed release(DR/EC) 20 mg PO HS Qty: 90 3RF (DME) Accu-Chek Kimberley Plus test strp Strip See Rx Instructions .ROUTE .MEDSUPPLY Qty: 100 6RF Rx Instructions: test blood sugars once daily (DME) lancets [Accu-Chek Multiclix Lancet] Misc See Rx Instructions .ROUTE .MEDSUPPLY Qty: 100 6RF Rx Instructions: test blood sugars once daily fluoxetine 40 mg capsule 40 mg PO HS Qty: 90 3RF hydrocodone-acetaminophen 7.5-325 mg tablet 1 tab PO BID PRN (Reason: pain) Qty: 30 0RF atorvastatin 20 mg tablet 20 mg PO HS Qty: 90 3RF losartan 100 mg tablet 100 mg PO HS Qty: 90 3RF colchicine [Colcrys] 0.6 mg tablet See Rx Instructions PO BID Qty: 20 5RF Rx Instructions: Take 1 tablet twice daily for 5 days with each flare PO twice a day; glipizide 2.5 mg tablet extended release 24 hr 2.5 mg PO QAM acetaminophen 500 mg Tablet 1,000 mg PO Q6H PRN (Reason: Pain) Discontinued dicyclomine 20 mg tablet 20 mg PO BID Qty: 180 3RF cyclobenzaprine 10 mg tablet 10 mg PO TID PRN (Reason: muscle spasm) Qty: 60 0RF loperamide 2 mg Tablet 2 mg PO HS diphenhydramine HCl [Benadryl] 25 mg Capsule 25 mg PO HS naproxen sodium [Aleve] 220 mg Capsule 440 mg PO BID PRN (Reason: Pain) Discharge Orders: Discharge Order (Routine); Ordered 06/11/22 Ordered By: Michelle Simpson Admission Data Admit Date/Time: 06/10/22 15:36 Attending Provider: Michelle Simpson Admit Provider: Aniket Buck Primary Care Provider: Nellie Alvarez Other Providers: [facility] ; [facility] Other Interventions: Discharge Summary Assessment (RN) Last Done: 06/11/22 11:48 Coding Level of Care Code D/C DAY MANAGEMENT >30 MINS Diagnoses Syncope and collapse R55 Diarrhea R19.7 Diabetes mellitus, type 2 E11.9 Back pain M54.9 Back pain laterality: midline Back pain location: back pain in unspecified location Chronicity: acute Right ankle pain M25.571 Right hip pain M25.551 Osteoarthritis M19.90 Lumbar radiculopathy M54.16 Hypertension I10 Hyperlipidemia E78.5 Acid reflux K21.9 Peripheral neuropathy G62.9 Gout M10.9 Depression F32.9 Time Spent (min) 35
[2022-06-11] MEDS: HYDROCODONE/ACETAMINOPHEN 7.5/325MG TAB PO PRN (13:57)
== END 2022-06-11 14:20 | disposition home or self-care (01) | DRG 312 ==
LOC: ED 17:16 → 1E 17:16 → SUATTDRO 23:26 → 1E 06-09 00:04 → 2N 06-10 14:27